=== PATIENT | female | born 1935 | race Caucasian/White ===

== ENCOUNTER 2016-09-15 13:27 | Emergency (ER) | payer MEDICARE ==
[2016-09-15 14:12] LABS: Hematocrit 43 % (35-47); Hemoglobin 14.2 g/dl (12.0-16.0); Mean Corpuscular HGB Conc 33 g/dl (31-36); Mean Corpuscular Hemoglobin 29 pg (27-31); Mean Corpuscular Volume 88 fL (80-97); Mean Platelet Volume 8 um3 (7.4-10.4); Red Blood Count 4.94 10^6/ul (4.0-5.4); Red Cell Distribution Width 13 % (10.5-15); White Blood Count 8.8 10^3/ul (3.5-10.8)
[2016-09-15] MEDS ORDERED: Albuterol/Ipratropium NEB.SOL* Albuterol 2.5 MG/Ipratropium 0.5 MG 3 ML INH ONE (14:21)
[2016-09-15 14:27] LABS: Albumin 4.4 g/dL (3.2-5.2); BUN/Creatinine Ratio 18.8 (8-20); Calcium 9.8 mg/dL (8.6-10.3); EGFR African American 82.6 (>60); EGFR Non-African American 64.2 (>60); Globulin 3.8 g/dL (2-4); Total Bilirubin 0.8 mg/dL (0.2-1.0); Total Protein 8.2 g/dL (6.4-8.9)
[2016-09-15 14:54] LABS: Potassium 3.9 mmol/L (3.5-5.0)
--- NOTE | 2016-09-15 14:56 | RAD ---
INDICATION: Shortness of breath and tachycardia. COMPARISON: There are no prior studies available for comparison. TECHNIQUE: A portable view of the chest was obtained. FINDINGS: The heart appears mildly enlarged. The lungs are hyperinflated. There is slight increased density adjacent to and EKG leads which project over the right upper lobe likely related to the EKG lead although a pulmonary nodule cannot be excluded. Recommend a PA and lateral chest films when the patient is clinically able. No pleural effusion is seen. IMPRESSION: 1. NO EVIDENCE FOR ACUTE FINDING. 2. INCREASED DENSITY ADJACENT TO AN EKG LEAD WHICH PROJECTS OVER THE RIGHT UPPER LOBE LIKELY RELATED TO THE EKG LEAD ALTHOUGH A PULMONARY NODULE CANNOT BE EXCLUDED. RECOMMEND PA AND LATERAL CHEST FILMS WITHOUT THE EKG LEAD PRESENT FOR FURTHER EVALUATION.
[2016-09-15] MEDS ORDERED: Iohexol 350* (CONTRAST) 500 ML MDV IV ONE (16:05)
--- NOTE | 2016-09-15 17:04 | RAD ---
Indication: Tachycardia, shortness of breath and elevated d-dimer. CTA of the chest was performed after IV contrast administration. Coronal and sagittal reconstructed images were obtained. Administered 65.0 ml of Contrast -- mgi/ml was given according to hospital protocol. Pulmonary arterial tree is well opacified. There are no evidence of filling defects present to suggest pulmonary embolus. Motion artifact is noted. There is no mediastinal or hilar adenopathy noted. There is cardiomegaly noted. No pericardial effusion is noted. The trachea and major bronchi appear patent. Lung gaytan demonstrate no evidence of alveolar consolidation. Some atelectasis is noted in the right middle lobe. No pleural fluid is identified. The visualized abdominal organs are grossly unremarkable. Gallstones are noted in the dependent portion of the gallbladder. 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 This measures up to 2.5 cm. This appears to be unchanged from previous exam of January 13, 2015. IMPRESSION: No evidence of pulmonary embolus is noted. Cardiomegaly without evidence of pericardial effusion. Gallstones are present. 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
[2016-09-15] MEDS ORDERED: predniSONE TAB* 20 MG PO ONE (17:20)
[2016-09-15] MEDS ORDERED: hydrOXYzine HCL TAB* 25 MG PO ONE (18:16)
[2016-09-15 18:39] VITALS: BP 133/74
--- NOTE | 2016-09-15 22:31 | ED ---
Reji Olmos Adam, scribed for Maurisio Cornell MD on 09/15/16 at 1404 . Respiratory - HPI Summary HPI Summary: Pt is an 81 year old female presenting with SOB. She has been having trouble breathing for 3-4 days. She saw a doctor at [facility] 3 days ago and was told that she was having post-nasal drip. Today she went to [facility] again because the SOB has grown worse. Pt states that she has had SOB before but never this severe. Lying flat and exertion aggravates the SOB. She also c/o cough for 5-10 days. She denies any fever, pain, or blood. PMHx of thyroid disease, HTN, and PNA several years ago. Negative Hx of heart/lung disease. Negative tobacco use. - History of Current Complaint Chief Complaint: EDShortnessOfBreath Stated Complaint: PALPATIONS Time Seen by Provider: 09/15/16 13:52 Hx Obtained From: Patient Onset/Duration: Gradual Onset, Lasting Days, Still Present Timing: Constant Initial Severity: Mild Current Severity: Moderate Character: Wheezing, Dyspnea at Rest Aggravating Factor(s): Nothing Alleviating Factor(s): Nothing Associated Signs and Symptoms: SOB, Wheezing - Allergy/Home Medications Allergies/Adverse Reactions: Allergies Allergy/AdvReac Type Severity Reaction Status Date / Time Amoxicillin Allergy Severe Rash Verified 01/09/16 07:09 Home Medications: Home Medications amLODIPine TAB* [Norvasc TAB*] 10 mg PO DAILY 09/15/16 [History Confirmed ] PMH/Surg Hx/FS Hx/Imm Hx Endocrine/Hematology History: Reports: Hx Thyroid Disease - On meds Cardiovascular History: Reports: Hx Hypertension - On meds Respiratory History: Reports: Hx Asthma - On meds - Surgical History Surgery Procedure, Year, and Place: PARTIAL THYROIDECTOMY; inguinal hernia Infectious Disease History: No Infectious Disease History: Denies: History Other Infectious Disease, Traveled Outside the [place] in Last 30 Days - Family History Known Family History: Positive: None - Per pt - Social History Occupation: Retired Lives: With Family - Son Alcohol Use: None Hx Substance Use: No Substance Use Type: Reports: None Hx Tobacco Use: No Smoking Status (MU): Never Smoked Tobacco Review of Systems Constitutional: Negative Negative: Fever Negative: Chest Pain Positive: Shortness Of Breath, Cough Negative: Abdominal Pain Negative: Arthralgia, Myalgia All Other Systems Reviewed And Are Negative: Yes Physical Exam - Summary Physical Exam Summary: General: Comfortable, pleasant, alert. HEENT: Moist mucosa, DAVID. Neck: Soft, supple, no adenopathy, no JVD. Heart: No murmurs, rubs, or gallops. Lungs: Good air movement throughout. Scattered wheezing. No rales. Abdominal: Soft, flat, nontender Extremities: No pitting edema, no calf tenderness, calves soft. Neuro: Alert and oriented x 3 Psych: Logical, coherent Triage Information Reviewed: Yes Vital Signs On Initial Exam: Initial Vitals Temp Pulse Resp BP Pulse Ox 98.7 F 124 20 148/81 94 09/15/16 13:39 09/15/16 13:39 09/15/16 13:39 09/15/16 13:39 09/15/16 13:39 Vital Signs Reviewed: Yes Diagnostics - Vital Signs Vital Signs Temp Pulse Resp BP Pulse Ox 09/15/16 13:39 98.7 F 124 20 148/81 94 - Laboratory Lab Results: Lab Results 09/15/16 09/15/16 09/15/16 Range/Units 14:00 14:00 14:00 WBC 8.8 (3.5-10.8) 10^3/ul RBC 4.94 (4.0-5.4) 10^6/ul Hgb 14.2 (12.0-16.0) g/dl Hct 43 (35-47) % MCV 88 (80-97) fL MCH 29 (27-31) pg MCHC 33 (31-36) g/dl RDW 13 (10.5-15) % Plt Count 379 (150-450) 10^3/ul MPV 8 (7.4-10.4) um3 Neut % (Auto) 75.7 (38-83) % Lymph % (Auto) 15.3 L (25-47) % Harnett % (Auto) 5.5 (1-9) % Eos % (Auto) 2.6 (0-6) % Baso % (Auto) 0.9 (0-2) % Absolute Neuts (auto) 6.7 (1.5-7.7) 10^3/ul Absolute Lymphs (auto) 1.3 (1.0-4.8) 10^3/ul Absolute Monos (auto) 0.5 (0-0.8) 10^3/ul Absolute Eos (auto) 0.2 (0-0.6) 10^3/ul Absolute Basos (auto) 0.1 (0-0.2) 10^3/ul Absolute Nucleated RBC 0.01 10^3/ul Nucleated RBC % 0.1 D-Dimer, Quantitative (Less Than 230) ng/mL Sodium 135 (133-145) mmol/L Potassium 3.9 (3.5-5.0) mmol/L Chloride 101 (101-111) mmol/L Carbon Dioxide 23 (22-32) mmol/L Anion Gap 11 (2-11) mmol/L BUN 16 (6-24) mg/dL Creatinine 0.85 (0.51-0.95) mg/dL Est GFR ( Amer) 82.6 (>60) Est GFR (Non-Af Amer) 64.2 (>60) BUN/Creatinine Ratio 18.8 (8-20) Glucose 148 H (70-100) mg/dL Lactic Acid 1.8 (0.5-2.0) mmol/L Calcium 9.8 (8.6-10.3) mg/dL Total Bilirubin 0.80 (0.2-1.0) mg/dL AST 18 (13-39) U/L ALT 10 (7-52) U/L Alkaline Phosphatase 76 (34-104) U/L Troponin I 0.00 (<0.04) ng/mL B-Natriuretic Peptide ( - 100) pg/mL Total Protein 8.2 (6.4-8.9) g/dL Albumin 4.4 (3.2-5.2) g/dL Globulin 3.8 (2-4) g/dL Albumin/Globulin Ratio 1.2 (1-3) TSH (0.34-5.60) mcIU/mL 09/15/16 09/15/16 09/15/16 Range/Units 14:00 14:00 14:00 WBC (3.5-10.8) 10^3/ul RBC (4.0-5.4) 10^6/ul Hgb (12.0-16.0) g/dl Hct (35-47) % MCV (80-97) fL MCH (27-31) pg MCHC (31-36) g/dl RDW (10.5-15) % Plt Count (150-450) 10^3/ul MPV (7.4-10.4) um3 Neut % (Auto) (38-83) % Lymph % (Auto) (25-47) % Harnett % (Auto) (1-9) % Eos % (Auto) (0-6) % Baso % (Auto) (0-2) % Absolute Neuts (auto) (1.5-7.7) 10^3/ul Absolute Lymphs (auto) (1.0-4.8) 10^3/ul Absolute Monos (auto) (0-0.8) 10^3/ul Absolute Eos (auto) (0-0.6) 10^3/ul Absolute Basos (auto) (0-0.2) 10^3/ul Absolute Nucleated RBC 10^3/ul Nucleated RBC % D-Dimer, Quantitative 370 H (Less Than 230) ng/mL Sodium (133-145) mmol/L Potassium (3.5-5.0) mmol/L Chloride (101-111) mmol/L Carbon Dioxide (22-32) mmol/L Anion Gap (2-11) mmol/L BUN (6-24) mg/dL Creatinine (0.51-0.95) mg/dL Est GFR ( Amer) (>60) Est GFR (Non-Af Amer) (>60) BUN/Creatinine Ratio (8-20) Glucose (70-100) mg/dL Lactic Acid (0.5-2.0) mmol/L Calcium (8.6-10.3) mg/dL Total Bilirubin (0.2-1.0) mg/dL AST (13-39) U/L ALT (7-52) U/L Alkaline Phosphatase (34-104) U/L Troponin I (<0.04) ng/mL B-Natriuretic Peptide 53 ( - 100) pg/mL Total Protein (6.4-8.9) g/dL Albumin (3.2-5.2) g/dL Globulin (2-4) g/dL Albumin/Globulin Ratio (1-3) TSH 1.18 (0.34-5.60) mcIU/mL Result Diagrams: 09/15/16 14:00 09/15/16 14:00 Lab Statement: Any lab studies that have been ordered have been reviewed, and results considered in the medical decision making process. - Radiology CXR Radiology Interpretation Completed By: Radiologist - IMPRESSION: 1. NO EVIDENCE FOR ACUTE FINDING. 2. INCREASED DENSITY ADJACENT TO AN EKG LEAD WHICH PROJECTS OVER THE RIGHT UPPER LOBE LIKELY RELATED TO THE EKG LEAD ALTHOUGH A PULMONARY NODULE CANNOT BE EXCLUDED. RECOMMEND PA AND LATERAL CHEST FILMS WITHOUT THE EKG LEAD PRESENT FOR FURTHER EVALUATION. - CT CHEST/THORAX CTA CT Interpretation Completed By: Radiologist - IMPRESSION: No evidence of pulmonary embolus is noted. Cardiomegaly without evidence of pericardial effusion. Gallstones are present. 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 - EKG 14:11 Cardiac Rate: Tachycardia - 108 BPM EKG Rhythm: Sinus Tachycardia EKG Interpretation: Inferior lateral ST flattening. 2 PVC's. - Additional Comments Diagnostic Additional Comments: Troponin I - 0.00 D-Dimer, Quantitative - 370 Disposition - Course Assessment/Plan: She presents with SOB but this has been going on episodically for years. This episode she states is worse than usual. She does not have any other cardiac ischemic equivalents such as any discomfort anywhere. She has had a cough with this. When I examine her there is some obvious wheezing. We will give her azithromycin, steroids, and breathing treatments. There is no evidence of cardiac etiology or PE. I believe she should follow up with her PCP and have an out-patient stress test given that these episodes have been going on for such a long time. She agrees to return for any worsening of her symptoms or any new cardiac ischemic equivalents and these were described to her in detail. Currently her HR is 100 BPM. - Diagnoses Provider Diagnoses: Cough, SOB (shortness of breath) Discharge - Discharge Plan Condition: Good Disposition: HOME Prescriptions: Albuterol HFA INHALER* [Ventolin HFA Inhaler*] 1 puff INH Q4H PRN #1 mdi PRN Reason: Wheezing Azithromyxin HOOD (NF) [Z-Hood (Zithromax) 250 mg tabs #6] 2 tab PO .TODAY, THEN 1 DAILY #6 tab Spacer/Aerosol-Holding Chamber [Aerochamber Plus] 1 mis INH Q4HR PRN #1 mis PRN Reason: Wheezing predniSONE TAB* [Deltasone TAB*] 20 mg PO DAILY #12 tab Patient Education Materials: Wheezing (ED) Referrals: Bailee Ayers MD [Primary Care Provider] - 1 Day The documentation as recorded by the Reji clements Adam accurately reflects the service I personally performed and the decisions made by me, Maurisio Cornell MD.
== END 2016-09-15 18:37 | disposition home or self-care (01) ==
LOC: ED 13:27
DX: R06.02 Shortness of breath (principal); R00.0 Tachycardia, unspecified; R05 Cough; R06.2 Wheezing
CPT/HCPCS: 36415; 71010; 71275; 80053; 83605; 83880; 84443; 84484; 85025; 85379; 87040; 93005; 94640; 99283; A9270-GY; J7512; Q9967

== ENCOUNTER 2018-02-17 11:33 | Emergency (ER) | payer MEDICARE ==
[2018-02-17] MEDS ORDERED: Ibuprofen TAB* 600 MG PO ONE (11:52)
[2018-02-17] MEDS ORDERED: Acetaminophen TAB* 325 MG PO ONE (11:52)
--- NOTE | 2018-02-17 13:05 | RAD ---
INDICATION: Chronic back pain COMPARISON: CT abdomen pelvis January 13, 2015 TECHNIQUE: Noncontrast axial source images was performed from the thoracolumbar junction to the sacrum. Coronal and and sagittal reformatted images were generated. FINDINGS: Vertebrae: There is no fracture or acute focal bony lesion. There is progressive endplate deformity involving the superior endplate of L2. There is chronic L4 spondylolysis with a grade 1 anterolisthesis. This produces moderate central canal stenosis. There is multilevel facet arthropathy. There is multilevel degenerative bony spur formation. There is degenerative disc space narrowing with vacuum disc phenomena at L3-L4 and L4-L5 Alignment: As noted above grade 1 anterolisthesis of L4 on L5. Central Canal: There are no other significant CT abnormalities of the central canal or foramina. MR imaging is a more sensitive method to evaluate the canal and foramina. Intervertebral disc spaces: Multilevel degenerative narrowing as noted above. Soft tissues: The paravertebral soft tissues are normal. Other: None IMPRESSION: 1. Superior endplate compression deformity of L2 appears mildly progressive from 2014. 2. Multilevel degenerative disc disease with vacuum disc phenomena. Other degenerative changes include bony spur formation facet arthropathy. 3. Degenerative disc disease with vacuum disc phenomena at L3-L4 and L4-L5 4. Chronic L4 spondylolysis with grade 1 anterolisthesis. Moderate central canal stenosis at L4-L5.
--- NOTE | 2018-02-17 13:06 | RAD ---
INDICATION: Right flank pain. Low back pain COMPARISON: CT abdomen pelvis January 13, 2015 TECHNIQUE: Noncontrast axial source images were acquired from the level hemidiaphragms to the symphysis pubis as part of CT imaging for renal stone. Lung bases: The lung bases are clear. The heart is enlarged. Liver: The liver is normal in size. Noncontrast imaging shows no evidence of a hepatic mass or ductal dilatation. Gallbladder: There is cholelithiasis. Spleen: The spleen is normal in size. The noncontrast CT appearance is normal. Pancreas: Noncontrast imaging shows no pancreatic mass or ductal dilitation. Adrenal glands: No masses are identified. Kidneys/Bladder: There is no evidence of nephrolithiasis or CT evidence of hydronephrosis. Noncontrast imaging shows no evidence of a new renal mass. There is a fat-containing lesion in the lower pole of the left kidney measuring 2.9 cm which is unchanged and consistent with angiomyolipoma. The bladder is partially decompressed. There is a vesicocele. Adenopathy: There is no evidence of intraperitoneal or retroperitoneal adenopathy. Evaluation is limited without oral contrast. Fluid collections: There are no free or localized fluid collections. Vessels: The aorta and iliac vessels are normal in caliber. There are no significant atherosclerotic changes. The IVC appears normal Pelvic organs: There is uterine prolapse. There is no adnexal mass. GI tract: Evaluation of the GI tract is limited without contrast. There is a small hiatal hernia. There are scattered diverticula of the sigmoid and descending colon without CT findings of acute diverticulitis. Soft tissues: No soft tissue abnormalities of the extraperitoneal abdomen or pelvis are identified. Osseous structures: Spondylitic change of the lumbar spine. This is described in a separate report. IMPRESSION: 1. No CT evidence of urolithiasis. 2. Cholelithiasis, unchanged 3. Left-sided renal angiomyolipoma, unchanged. 4. Scattered diverticula, unchanged. Hiatal hernia. 5. Cystocele. Uterine prolapse.
[2018-02-17 14:16] VITALS: BP 135/89
--- NOTE | 2018-02-17 15:48 | ED ---
Alexei Olmos Jade, scribed for Mynor Ahumada MD on 02/17/18 at 1143 . Lower Extremity - HPI Summary HPI Summary: Pt is an 82 y/o female BIBA who c/o hip pain. She states the pain started 4 days ago in her left hip, which resolved. The pain then moved to her right hip and keeps worsening, is constant, and is rated 8/10 in severity. It is hard to walk or put pressure on her hip. She also complains of low back pain near her sacrum (self-reported L4-L5) from an injury several years ago. Pt denies any fever, chills, SOB, numbness, ankle pain, knee pain, any other joint pain, or swelling of her low back. Pt has been taking Ibuprofen for the pain, which helps a little. She denies any recent trauma, fall, or new activities. PMHx arthritis. As per daughter, pt is in the early stages of dementia, so her short term memory is getting worse. - History of Current Complaint Chief Complaint: EDHipPelvisInjury Stated Complaint: RT LEG PAIN Time Seen by Provider: 02/17/18 11:40 Hx Obtained From: Patient Mechanism Of Injury: Unknown Onset of Pain: Days - 4 Onset/Duration: Worse Since Severity Currently: Severe Pain Intensity: 8 Pain Scale Used: 0-10 Numeric Timing: Constant Location: Is Discrete @ - Right hip, low back Associated Signs And Symptoms: Negative: Swelling, Knee Pain Aggravating Factor(s): Movement, Weight Bearing Alleviating Factor(s): Nothing Able to Bear Weight: No - Allergies/Home Medications Allergies/Adverse Reactions: Allergies Allergy/AdvReac Type Severity Reaction Status Date / Time amoxicillin Allergy Rash Verified 02/17/18 11:41 Home Medications: Home Medications Albuterol HFA INHALER* [Ventolin HFA Inhaler*] 1 - 2 puff INH BID 02/17/18 [ History Confirmed 02/17/18] Ibuprofen TAB* [Motrin TAB* 400 MG] 400 mg PO Q6H PRN 02/17/18 [History Confirmed 02/17/18] PMH/Surg Hx/FS Hx/Imm Hx Endocrine/Hematology History: Reports: Hx Thyroid Disease - On meds Cardiovascular History: Reports: Hx Hypertension - On meds Respiratory History: Reports: Hx Asthma - On meds Musculoskeletal History: Reports: Hx Arthritis - Surgical History Surgery Procedure, Year, and Place: PARTIAL THYROIDECTOMY; inguinal hernia Infectious Disease History: No Infectious Disease History: Denies: History Other Infectious Disease, Traveled Outside the [place] in Last 30 Days - Family History Known Family History: Positive: Cardiac Disease - CHF, Other - [place] - Social History Alcohol Use: None Hx Substance Use: No Substance Use Type: Reports: None Hx Tobacco Use: No Smoking Status (MU): Never Smoked Tobacco Review of Systems Negative: Fever, Chills Negative: Shortness Of Breath Musculoskeletal: Other - NEGATIVE: ankle pain, knee pain Positive: Arthralgia - Right hip pain, Other - Low back pain. Negative: Edema Negative: Numbness All Other Systems Reviewed And Are Negative: Yes Physical Exam - Summary Physical Exam Summary: General: well-appearing, no pain distress Skin: warm, color reflects adequate perfusion, dry Head: normal Eyes: EOMI, DAVID ENT: normal Neck: supple, nontender Respiratory: CTA, breath sounds present Cardiovascular: RRR Abdomen: soft, nontender Bowel: present Musculoskeletal: strength/ROM intact, tenderness of the sciatic distribution of the right buttock. Mild low back tenderness over L5-S1. Neurological: sensory/motor intact, A&O x3 Psychological: affect/mood appropriate Triage Information Reviewed: Yes Vital Signs On Initial Exam: Initial Vitals Temp Pulse Resp BP Pulse Ox 99.4 F 94 16 133/79 97 02/17/18 11:39 02/17/18 11:39 02/17/18 11:39 02/17/18 11:39 02/17/18 11:39 Vital Signs Reviewed: Yes Diagnostics - Vital Signs Vital Signs Temp Pulse Resp BP Pulse Ox 02/17/18 11:39 99.4 F 94 16 133/79 97 - Laboratory Lab Statement: Any lab studies that have been ordered have been reviewed, and results considered in the medical decision making process. - CT Abd/Pel CT CT Interpretation Completed By: Radiologist - 11:53: 1. No CT evidence of urolithiasis. 2. Cholelithiasis, unchanged 3. Left-sided renal angiomyolipoma , unchanged. 4. Scattered diverticula, unchanged. Hiatal hernia. 5. Cystocele. Uterine prolapse. ED physician reviewed radiology report. Lumbar Spine CT CT Interpretation Completed By: Radiologist - 11:53: 1. Superior endplate compression deformity of L2 appears mildly progressive from 2015. 2. Multilevel degenerative disc disease with vacuum disc phenomena. Other degenerative changes include bony spur formation facet arthropathy. 3. Degenerative disc disease with vacuum disc phenomena at L3-L4 and L4-L5 4. Chronic L4 spondylolysis with grade 1 anterolisthesis. Moderate central canal stenosis at L4-L5. ED physician reviewed radiology report. Lower Extremity Course/Dx - Course Course Of Treatment: DISCUSSED RESULTS WITH THE PATIENT AND HER DAUGHTER. PAIN DECREASED IN ED WITH IBUPROFEN 600MG AND ACETAMINOPHEN 1000MG. F/U PMD; RETURN TO ED IF WORSE. - Diagnoses Provider Diagnoses: Low back pain, Right hip pain, Right sciatic nerve pain Discharge - Sign-Out/Discharge Documenting (check all that apply): Discharge/Admit/Transfer - Discharge - Discharge Plan Condition: Stable Disposition: HOME Prescriptions: Ibuprofen TAB* [Motrin TAB* 600 MG] 600 mg PO Q8H PRN #30 tab PRN Reason: Pain Patient Education Materials: Low Back Strain (ED), Lumbar Radiculopathy (ED), Lower Back Exercises (ED) Referrals: Bailee Ayers MD [Primary Care Provider] - Additional Instructions: FOLLOW UP WITH YOUR DOCTOR. TAKE IBUPROFEN 600MG THREE TIMES A DAY WITH FOOD. TAKE ACETAMINOPHEN 1000MG EVERY 8 HOURS NEEDED FOR PAIN. GET RECHECKED FOR ANY WORSENING OF YOUR CONDITION; PAIN, WEAKNESS, NUMBNESS, DIFFICULTY CONTROLLING BOWEL OR BLADDER, FEVER, OR QUESTIONS OR CONCERNS. - Billing Disposition and Condition Condition: STABLE Disposition: Home The documentation as recorded by the Alexei clements Jade accurately reflects the service I personally performed and the decisions made by me, Mynor Ahumada MD.
== END 2018-02-17 14:15 | disposition home or self-care (01) ==
LOC: ED 11:33
DX: M54.41 Lumbago with sciatica, right side (principal); M25.551 Pain in right hip; Z88.1 Allergy status to other antibiotic agents; I10 Essential (primary) hypertension; J45.909 Unspecified asthma, uncomplicated; E07.9 Disorder of thyroid, unspecified; Z79.899 Other long term (current) drug therapy; K80.20 Calculus of gallbladder without cholecystitis without obstruction; D17.71 Benign lipomatous neoplasm of kidney; K57.90 Diverticulosis of intestine, part unspecified, without perforation or abscess without bleeding; N81.4 Uterovaginal prolapse, unspecified
CPT/HCPCS: 72131; 74176; 99282; A9270-GY

== ENCOUNTER 2018-02-21 07:35 | Inpatient (IN) | payer MEDICARE ==
[2018-02-21] MEDS ORDERED: NS 0.9% 1000 ML* 1,000 ML IV ONE (07:58)
[2018-02-21] MEDS ORDERED: Ondansetron INJ* 2 MG/ML VIAL IV ONE (07:58)
[2018-02-21 08:31] LABS: ABS Basophils 0.1 10^3/ul (0-0.2); ABS Eosinophils 0.3 10^3/ul (0-0.6); ABS Monocytes 0.8 10^3/ul (0-0.8); ABS Neutrophils 6.1 10^3/ul (1.5-7.7); ABS Nucleated RBC 0 10^3/ul; Eosinophil % 3.9 % (0-6); Hematocrit 38 % (35-47); Lymphocyte % 12.1 % (25-47); Mean Corpuscular HGB Conc 34 g/dl (31-36); Mean Corpuscular Hemoglobin 30 pg (27-31); Mean Corpuscular Volume 88 fL (80-97); Mean Platelet Volume 7.3 um3 (7.4-10.4); Nucleated Red Blood Cells % 0; Platelet Count 427 10^3/ul (150-450); Red Blood Count 4.33 10^6/ul (4.00-5.40); Red Cell Distribution Width 13 % (10.5-15); White Blood Count 8.3 10^3/ul (3.5-10.8)
[2018-02-21] MEDS ORDERED: Morphine VIAL* 4 MG/ML VIAL (1 ml vial) IV ONE (08:41)
[2018-02-21 08:46] LABS: EGFR Non-African American 33.8 (>60)
[2018-02-21] MEDS ORDERED: Ondansetron ODT TAB* 4 MG PO ONE (08:48)
--- NOTE | 2018-02-21 09:00 | RAD ---
Indication: Nausea, vomiting, low back pain. Comparison: September 15, 2016 CT. Technique: Sitting AP chest 0835 hours Report: Elevated lung volumes and both diffuse mild prominence of the interstitial markings and patchy rarefaction of the mid to upper lung zone interstitial markings. Minimal linear atelectasis or scarring at the LEFT lung base. No focal pulmonary lesion, compelling alveolar consolidation, pleural effusion, pneumothorax. Unchanged mild cardiomegaly. Unremarkable central pulmonary vasculature and mediastinal contours. IMPRESSION: Stigmata of obstructive lung disease. No acute pulmonary or cardiac process evident.
--- NOTE | 2018-02-21 09:03 | RAD ---
Indication: Nausea, vomiting, low back pain. Comparison: Chest radiograph of the same date. February 17, 2018 CT. September 15, 2016 CT. Technique: Supine view of the abdomen. Report: Moderately large volume of retained stool throughout the colon without significant rectal distention. No dilated bowel loops evident. No suspicious calcifications or mass effect evident. Costochondral calcifications and pelvic phleboliths noted. Unremarkable soft tissue contours. Lumbar sacral spine degenerative spondylosis and facet joint osteoarthritis. Compression deformity of the L2 vertebral body involving the superior endplate is chronic. IMPRESSION: Moderately large volume of retained stool throughout the colon without findings to indicate bowel obstruction.
--- NOTE | 2018-02-21 09:27 | RAD ---
HISTORY: Back pain COMPARISONS: CT of the abdomen and pelvis dated February 17, 2018 TECHNIQUE: Multiple transverse and longitudinal ultrasound images were obtained of the right upper quadrant. FINDINGS: LIVER: The liver is normal in dimensions and echogenicity. Normal hepatic and portal venous blood flow is duplicated with color flow imaging. There is no gross intrahepatic biliary duct dilatation. GALLBLADDER AND EXTRAHEPATIC BILIARY DUCT: There is mobile echogenic material in the dependent portion of the gallbladder consistent with small stones. There is no pericholecystic fluid or gallbladder wall thickening. The common bile duct measures a maximum diameter of 4 mm. PANCREAS: The portions of the pancreas not obscured by bowel gas are normal in appearance. RIGHT KIDNEY: At the superior pole of the right kidney there is a 2.1 cm anechoic and avascular cyst. Otherwise the right kidney is normal in size, morphology and echogenicity. AORTA AND IVC: The visualized portions are normal in appearance and not pathologically dilated. IMPRESSION: CHOLELITHIASIS WITHOUT SIGNS OF ACUTE INFLAMMATORY CHANGE OR BILIARY OBSTRUCTION.
[2018-02-21 09:54] LABS: Urine Appearance Clear; Urine Blood 2+ (Negative); Urine Color Straw; Urine Ketones 1+ (Negative); Urine Protein Negative (Negative); Urine Specific Gravity 1.008 (1.010-1.030); Urine Urobilinogen Negative (Negative)
[2018-02-21] MEDS ORDERED: Morphine VIAL* 4 MG/ML VIAL (1 ml vial) IV PRN (11:40)
[2018-02-21] MEDS ORDERED: Al Hydrox/Mg Hydrox/Simet LIQ* 30 ML UDC PO PRN (11:40)
[2018-02-21] MEDS ORDERED: Magnesium Hydroxide LIQ* 30 ML UDC PO PRN (11:40)
[2018-02-21] MEDS ORDERED: Albuterol 2.5 MG/3 ML NEB.SOL* (0.083%) INH PRN (11:40)
[2018-02-21] MEDS ORDERED: Acetaminophen TAB* 325 MG PO PRN (11:40)
--- NOTE | 2018-02-21 11:41 | ED ---
Manny Olmos Tiffany, scribbambi for Benedict Mckay on 02/21/18 at 0806 . Complex/Multi-Sys Presentation - HPI Summary HPI Summary: 82 year old F BIBA to [facility] complains of nausea since yesterday morning. Symptoms aggravated by nothing. Symptoms alleviated by nothing. Patient reports decreased appetite, insomnia, black/dark brown vomit. Denies diarrhea, black stools, fever, chest pain, SOB. Seen here four days ago for lower back pain, discharged with Tramadol. Patient still complaining of lower back pain. - History Of Current Complaint Time Seen by Provider: 02/21/18 07:46 Onset/Duration: Lasting Days - yesterday morning, Still Present Timing: Constant Aggravating Factor(s): Nothing Alleviating Factor(s): Nothing Associated Signs And Symptoms: Positive: Other - decreased appetite, insomnia, black/dark brown vomit, lower back pain; NEGATIVE: diarrhea, black stools, fever , chest pain, SOB - Allergies/Home Medications Allergies/Adverse Reactions: Allergies Allergy/AdvReac Type Severity Reaction Status Date / Time amoxicillin Allergy Rash Verified 02/21/18 07:48 PMH/Surg Hx/FS Hx/Imm Hx Previously Healthy: No Endocrine/Hematology History: Reports: Hx Thyroid Disease - On meds Cardiovascular History: Reports: Hx Hypertension - On meds Respiratory History: Reports: Hx Asthma - On meds Musculoskeletal History: Reports: Hx Arthritis - Surgical History Surgery Procedure, Year, and Place: PARTIAL THYROIDECTOMY; inguinal hernia Infectious Disease History: Denies: History Other Infectious Disease - Family History Known Family History: Positive: Cardiac Disease - CHF, Other - CA - Social History Alcohol Use: None Hx Substance Use: No Substance Use Type: Reports: None Hx Tobacco Use: No Smoking Status (MU): Never Smoked Tobacco Review of Systems Negative: Fever Negative: Chest Pain Negative: Shortness Of Breath Positive: Vomiting - black/dark brown vomit, Nausea, Other - decreased appetite ; NEGATIVE: black stools. Negative: Diarrhea Positive: Other - lower back pain Positive: Other - insomnia All Other Systems Reviewed And Are Negative: Yes Physical Exam - Summary Physical Exam Summary: Appearance: Well appearing, no pain distress Skin: warm, dry, reflects adequate perfusion Head/face: normal Eyes: EOMI, DAVID ENT: dry mucous membranes Neck: supple, non-tender Respiratory: CTA, breath sounds present Cardiovascular: RRR, pulses symmetrical Abdomen: non-tender, soft Bowel: present Musculoskeletal: normal, strength/ROM intact Neuro: normal, sensory motor intact, A&Ox3 Triage Information Reviewed: Yes Vital Signs On Initial Exam: Initial Vitals Pulse BP Pulse Ox 95 141/79 94 02/21/18 07:46 02/21/18 07:46 02/21/18 07:46 Vital Signs Reviewed: Yes Diagnostics - Vital Signs Vital Signs Temp Pulse Resp BP Pulse Ox 02/21/18 10:16 81 114/69 88 02/21/18 10:00 83 92 02/21/18 09:46 89 124/68 89 02/21/18 09:16 90 127/80 95 02/21/18 09:07 17 02/21/18 09:00 90 97 02/21/18 08:46 89 118/92 96 02/21/18 08:18 134/82 02/21/18 08:00 87 94 02/21/18 07:49 99.1 F 93 16 141/79 95 02/21/18 07:47 99 97 02/21/18 07:46 95 141/79 94 - Laboratory Lab Results: Lab Results 02/21/18 02/21/18 02/21/18 Range/Units 08:13 08:13 08:13 WBC 8.3 (3.5-10.8) 10^3/ul RBC 4.33 (4.00-5.40) 10^6/ul Hgb 13.0 (12.0-16.0) g/dl Hct 38 (35-47) % MCV 88 (80-97) fL MCH 30 (27-31) pg MCHC 34 (31-36) g/dl RDW 13 (10.5-15) % Plt Count 427 (150-450) 10^3/ul MPV 7.3 L (7.4-10.4) um3 Neut % (Auto) 74.0 (38-83) % Lymph % (Auto) 12.1 L (25-47) % [place] % (Auto) 9.3 H (0-7) % Eos % (Auto) 3.9 (0-6) % Baso % (Auto) 0.7 (0-2) % Absolute Neuts (auto) 6.1 (1.5-7.7) 10^3/ul Absolute Lymphs (auto) 1.0 (1.0-4.8) 10^3/ul Absolute Monos (auto) 0.8 (0-0.8) 10^3/ul Absolute Eos (auto) 0.3 (0-0.6) 10^3/ul Absolute Basos (auto) 0.1 (0-0.2) 10^3/ul Absolute Nucleated RBC 0 10^3/ul Nucleated RBC % 0 INR (Anticoag Therapy) 1.00 (0.77-1.02) APTT 37.2 H (26.0-36.3) seconds Sodium 134 L (135-145) mmol/L Potassium 3.8 (3.5-5.0) mmol/L Chloride 100 L (101-111) mmol/L Carbon Dioxide 22 (22-32) mmol/L Anion Gap 12 H (2-11) mmol/L BUN 35 H (6-24) mg/dL Creatinine 1.48 H (0.51-0.95) mg/dL Est GFR ( Amer) 40.9 (>60) Est GFR (Non-Af Amer) 33.8 (>60) BUN/Creatinine Ratio 23.6 H (8-20) Glucose 105 H (70-100) mg/dL Calcium 9.6 (8.6-10.3) mg/dL Total Bilirubin 0.70 (0.2-1.0) mg/dL AST 16 (13-39) U/L ALT 10 (7-52) U/L Alkaline Phosphatase 131 H (34-104) U/L Total Protein 7.3 (6.4-8.9) g/dL Albumin 3.9 (3.2-5.2) g/dL Globulin 3.4 (2-4) g/dL Albumin/Globulin Ratio 1.1 (1-3) Lipase < 10 L (11.0-82.0) U/L Urine Color Urine Appearance Urine pH (5-9) Ur Specific [place] (1.010-1.030) Urine Protein (Negative) Urine Ketones (Negative) Urine Blood (Negative) Urine Nitrate (Negative) Urine Bilirubin (Negative) Urine Urobilinogen (Negative) Ur Leukocyte Esterase (Negative) Urine WBC (Auto) (Absent) Urine RBC (Auto) (Absent) Ur Squamous Epith Cells (Absent) Urine Bacteria (Absent) Urine Glucose (Negative) 02/21/18 Range/Units 09:30 WBC (3.5-10.8) 10^3/ul RBC (4.00-5.40) 10^6/ul Hgb (12.0-16.0) g/dl Hct (35-47) % MCV (80-97) fL MCH (27-31) pg MCHC (31-36) g/dl RDW (10.5-15) % Plt Count (150-450) 10^3/ul MPV (7.4-10.4) um3 Neut % (Auto) (38-83) % Lymph % (Auto) (25-47) % [place] % (Auto) (0-7) % Eos % (Auto) (0-6) % Baso % (Auto) (0-2) % Absolute Neuts (auto) (1.5-7.7) 10^3/ul Absolute Lymphs (auto) (1.0-4.8) 10^3/ul Absolute Monos (auto) (0-0.8) 10^3/ul Absolute Eos (auto) (0-0.6) 10^3/ul Absolute Basos (auto) (0-0.2) 10^3/ul Absolute Nucleated RBC 10^3/ul Nucleated RBC % INR (Anticoag Therapy) (0.77-1.02) APTT (26.0-36.3) seconds Sodium (135-145) mmol/L Potassium (3.5-5.0) mmol/L Chloride (101-111) mmol/L Carbon Dioxide (22-32) mmol/L Anion Gap (2-11) mmol/L BUN (6-24) mg/dL Creatinine (0.51-0.95) mg/dL Est GFR ( Amer) (>60) Est GFR (Non-Af Amer) (>60) BUN/Creatinine Ratio (8-20) Glucose (70-100) mg/dL Calcium (8.6-10.3) mg/dL Total Bilirubin (0.2-1.0) mg/dL AST (13-39) U/L ALT (7-52) U/L Alkaline Phosphatase (34-104) U/L Total Protein (6.4-8.9) g/dL Albumin (3.2-5.2) g/dL Globulin (2-4) g/dL Albumin/Globulin Ratio (1-3) Lipase (11.0-82.0) U/L Urine Color Straw Urine Appearance Clear Urine pH 5.0 (5-9) Ur Specific [place] 1.008 L (1.010-1.030) Urine Protein Negative (Negative) Urine Ketones 1+ A (Negative) Urine Blood 2+ A (Negative) Urine Nitrate Negative (Negative) Urine Bilirubin Negative (Negative) Urine Urobilinogen Negative (Negative) Ur Leukocyte Esterase Trace A (Negative) Urine WBC (Auto) 1+(6-10/hpf) A (Absent) Urine RBC (Auto) Trace(0-2/hpf) (Absent) Ur Squamous Epith Cells Present A (Absent) Urine Bacteria Absent (Absent) Urine Glucose Negative (Negative) Result Diagrams: 02/21/18 08:13 02/21/18 08:13 Lab Statement: Any lab studies that have been ordered have been reviewed, and results considered in the medical decision making process. - Radiology CXR Radiology Interpretation Completed By: Radiologist - Stigmata of obstructive lung disease. No acute pulmonary or cardiac process evident. ED physician has reviewed this report. Abdomen Radiology Interpretation Completed By: Radiologist - Moderately large volume of retained stool throughout the colon without findings to indicate bowel obstruction. ED physician has reviewed this report. - EKG 08:03 Cardiac Rate: NL - 97 BPM EKG Rhythm: Sinus Rhythm EKG Interpretation: No acute changes - Additional Comments Diagnostic Additional Comments: Gallbladder US, per radiologist, shows CHOLELITHIASIS WITHOUT SIGNS OF ACUTE INFLAMMATORY CHANGE OR BILIARY OBSTRUCTION. ED physician has reviewed this report. Complex Multi-Symp Course/Dx Course Of Treatment: 82 y/o F BIBA to [facility] complains of nausea that began yesterday AM. Bloodwork/UA obtained. Imaging obtained. Patient will be admitted to Dr. Yoon, hospitalist, for further evaluation. - Diagnoses Differential Diagnoses/HQI/PQRI: Urinary Tract Infection, Other - abd pain Provider Diagnoses: Abdominal pain, Back pain, Dehydration, Vomiting - Physician Notifications Discussed Care Of Patient With: Shane Yoon Time Discussed With Above Provider: 11:37 Instructed by Provider To: Other - Dr. Yoon, hospitalist, agrees to admit patient. Discharge - Sign-Out/Discharge Documenting (check all that apply): Discharge/Admit/Transfer - admit - Discharge Plan Condition: Fair Disposition: ADMITTED TO [facility] - Billing Disposition and Condition Condition: FAIR Disposition: Admitted to [facility] The documentation as recorded by the Manny clements Tiffany accurately reflects the service I personally performed and the decisions made by Woody lizama Emmanuel.
[2018-02-21] MEDS ORDERED: traMADol TAB* 50 MG PO PRN (11:43)
[2018-02-21] MEDS ORDERED: amLODIPine TAB* 5 MG PO SCH (11:45)
[2018-02-21] MEDS ORDERED: Valsartan TAB* 160 MG PO SCH (12:00)
[2018-02-21] MEDS ORDERED: Ondansetron ODT TAB* 4 MG SL PRN (12:04)
[2018-02-21] MEDS ORDERED: Polyethylene Glycol 3350* 17 GM PACKET PO PRN (12:05)
[2018-02-21] MEDS: Heparin VIAL(*) 5000 UNITS/ML VIAL (FIVE THOUSAND) SUBCUT SCH ×2 (13:28→21:36)
[2018-02-21] MEDS: Omeprazole CAP* 20 MG PO SCH ×2 (13:29→20:29)
[2018-02-21] MEDS: oxyCODONE/Acetamin 5/325 MG* TAB PO PRN ×3 (13:29→21:35)
[2018-02-21] MEDS: NS 0.9% 1000 ML* 1,000 ML IV SCH (13:45)
--- NOTE | 2018-02-21 14:42 | HP ---
CC: Dr. Bailee Ayers * ADMISSION HISTORY AND PHYSICAL: DATE OF ADMISSION: 02/21/18 PATIENT OF: Randall Yoon MD PRIMARY CARE PHYSICIAN: Dr. Ayers. ATTENDING HOSPITALIST: Dr. Randall Yoon.* (DICTATED BY BONNIE RAMON) CHIEF COMPLAINT: Nausea and vomiting. HISTORY OF PRESENT ILLNESS: Mrs. Whitaker is a pleasant 82-year-old female who carries a past medical history significant for COPD, hypertension, and hypothyroidism as well as chronic back pain with a longstanding history of L2 compression fracture, who presented to the emergency room today with complaints of 2 days history of worsening nausea and vomiting. The patient notes that she was in the ED approximately 3 days ago with a worsening back pain for which she was given Toradol tablets. She took some to control her back pain; however, she thinks it might have caused her to have nausea and vomiting. She has not been able to tolerate any fluid intake at home. She denies any difficulty urinating. Her back pain has gotten progressively worse over the past couple of years and she had a recent CT scan of the lumbar spine a few days ago that revealed a slightly worsening L2 compression fracture compared to previous study done in 2015. The patient denies any leg weakness, numbness, or incontinence of urine or stool; however, she has been having progressive difficulty ambulating around the house since she lives alone. She presented to the emergency room with worsening nausea and vomiting. She takes ibuprofen 3 or 4 times a day usually with meals and never on empty stomach. She denies any coffee-ground emesis, melena, or history of GI bleed. She was evaluated in the emergency room and had laboratory workup that revealed normal white count as well as normal hemoglobin and hematocrit. Her chemistry panel showed a slight hyponatremia as well as elevated BUN and creatinine compared to her baseline, which is likely secondary to dehydration. Her urinalysis was essentially unremarkable. She had an abdominal film that revealed a moderate amount of colonic stools; however, there was no evidence of bowel obstruction. She also described some associated epigastric discomfort when she gets nauseous and dry heaving; however, denies any abdominal pain at the time of admission. She had a right upper quadrant ultrasound that revealed evidence of cholelithiasis without cholecystitis or other abnormality. Given her ongoing symptoms and her known history of chronic back pain with L2 compression fracture, we were asked to see the patient to consider admission for hydration and also to consider social work associate consultation for short-term rehab placement if indicated. At the time of admission, the patient has no longer complaint of nausea, vomiting, or abdominal pain. She has been trying to take sips of clear liquids to see if she can keep it down. PAST MEDICAL HISTORY: As mentioned above significant for: 1. Hypertension. 2. Hypothyroidism. 3. History of asthma/COPD for which she has been on albuterol inhaler on a daily basis. 4. History of L2 compression fracture without any injury or fall. PAST SURGICAL HISTORY: Significant for partial thyroidectomy and inguinal hernia repair. CURRENT MEDICATIONS: Her medications at home include: 1. Albuterol HFA inhaler 1 to 2 puffs inhaled b.i.d. 2. Norvasc 10 mg p.o. daily. 3. Synthroid 88 mcg p.o. daily. 4. Diovan 320 mg p.o. daily. 5. Motrin 600 mg p.o. q.8 hours as needed for pain. 6. Ultram 50 mg p.o. q.6 hours as needed for pain. ALLERGIES: She is allergic to AMOXICILLIN. FAMILY HISTORY: She denies any family history of malignancies, heart disease, or stroke. SOCIAL HISTORY: The patient lives alone. 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 She had never smoked and denies consuming alcohol. Her son, Ryan Whitaker, is the healthcare proxy carrier. REVIEW OF SYSTEMS: See HPI, otherwise 14 points review of systems were evaluated and otherwise negative. PHYSICAL EXAMINATION GENERAL: She is a pleasant healthy-appearing elderly female in no acute distress or discomfort at the time of admission. VITAL SIGNS: Revealed a blood pressure of 114/69, pulse of 81, temperature of 99.1, respirations of 17, and O2 sats of 92% on room air. HEENT: Head is normocephalic, atraumatic. Sclerae anicteric. EOMs intact. Oropharynx is pink, moist, with no exudate. NECK: Supple. Trachea midline. No cervical adenopathy or thyromegaly. LUNGS: Clear to auscultation bilaterally. HEART: Regular rate and rhythm. Normal S1 and S2 without rubs, murmurs, or gallops. BACK: With normal curvature. No CVA tenderness. There is mild lower lumbar spine tenderness on exam, but no swelling, ecchymosis noted. ABDOMEN: Soft, round, nontender, and nondistended. There are no hernias, masses, or hepatosplenomegaly. No guarding, rigidity, or rebound tenderness and Ramos sign was negative. EXTREMITIES: Without cyanosis, clubbing, or edema. RECTAL: Exam deferred at this time. NEUROLOGIC: She is awake, alert, and oriented x3. Gross neurologic exam was normal. LABORATORY DATA/DIAGNOSTIC STUDIES: Laboratory workup: CBC with white count of 8000, hemoglobin of 13 and hematocrit of 38, platelets of 427. Chemistry panel with sodium of 138, potassium 3.8, chloride 100, CO2 of 22, BUN of 35 and creatinine of 1.5, glucose is 105. LFTs essentially within normal limits. Lipase is less than 10. TSH last obtained in August 2016 was 1.18. Accessory diagnostic data: As mentioned above. Abdominal x-ray with moderate amount of stool in the colon. No evidence of bowel obstruction. Chest x-ray with no acute changes. Gallbladder ultrasound with evidence of cholelithiasis without inflammation or pericholecystic fluid. ASSESSMENT: An 82-year-old female with past medical history significant for hypertension, hypothyroidism, and chronic back pain, who presents to the emergency room with 2 to 3 days history of worsening nausea, vomiting, and inability to tolerate p.o. fluid intake, who was found to be dehydrated and will be admitted for hydration as well as pain management of her chronic back pain and to consider social work associate consultation for short-term rehab placement. PLAN: 1. Nausea and vomiting. The patient will be admitted to the medical floor for IV fluid hydration. I will start her on clear liquid diet to see if she can tolerate her fluid intake and maybe advance her diet slowly as tolerated. I will provide Zofran as needed for control of her nausea as well as narcotics and Ultram as needed for her chronic back pain. She appears to be stable at this time and she has no complaints of nausea or vomiting. The patient also had no evidence of coffee-ground emesis or evidence of GI bleed; however, we will repeat her labs tomorrow to check her electrolytes as well as hemoglobin and hematocrit. 2. Chronic back pain. The patient with longstanding history of L2 compression fracture that has been managed conservatively. She lives alone and has been having difficulty ambulating for a long time. She would like to consider the option of short-term rehab placement and physical therapy during this admission. 3. Hypertension. We will maintain her on home medication including Diovan and Norvasc. 4. Hypothyroidism. We will continue her levothyroxine. 5. Constipation. We will provide Colace to take on a daily basis as well as MiraLAX and milk of magnesia to use as needed. 6. DVT prophylaxis: The patient is a high risk and will be covered with subcu heparin. 7. Code status: She is a full code. DISPOSITION: Admit to the medical floor for IV fluid hydration, symptomatic management of nausea and vomiting, as well as control of the chronic back pain, social consult is in progress to consider placement for short-term rehab. TIME SPENT: Approximately 60 minutes were spent admitting this patient with greater than 50% on taking history and performing physical exam. I have discussed the case with Dr. Yoon, who agreed to plans of care. BONNIE RAMON [id number]/CPS #: [id number] MTDChristopher
[2018-02-21] MEDS: Docusate CAP* 100 MG PO SCH (20:29)
[2018-02-21] MEDS: Albuterol HFA INHALER* 8 gm MDI INH SCH (21:02)
[2018-02-22] MEDS: oxyCODONE/Acetamin 5/325 MG* TAB PO PRN ×4 (03:36→19:52)
[2018-02-22] MEDS: NS 0.9% 1000 ML* 1,000 ML IV SCH (03:38)
[2018-02-22] MEDS: Heparin VIAL(*) 5000 UNITS/ML VIAL (FIVE THOUSAND) SUBCUT SCH ×3 (05:46→21:59)
[2018-02-22 05:51] LABS: ABS Basophils 0.1 10^3/ul (0-0.2); ABS Eosinophils 0.4 10^3/ul (0-0.6); ABS Lymphocytes 1.6 10^3/ul (1.0-4.8); ABS Monocytes 0.7 10^3/ul (0-0.8); ABS Nucleated RBC 0 10^3/ul; Eosinophil % 6.2 % (0-6); Hematocrit 32 % (35-47); Hemoglobin 10.7 g/dl (12.0-16.0); Lymphocyte % 28.1 % (25-47); Mean Corpuscular HGB Conc 33 g/dl (31-36); Mean Corpuscular Hemoglobin 30 pg (27-31); Mean Corpuscular Volume 89 fL (80-97); Mean Platelet Volume 7.2 um3 (7.4-10.4); Nucleated Red Blood Cells % 0; Platelet Count 386 10^3/ul (150-450); Red Blood Count 3.62 10^6/ul (4.00-5.40); Red Cell Distribution Width 13 % (10.5-15); White Blood Count 5.7 10^3/ul (3.5-10.8)
[2018-02-22 06:04] LABS: EGFR Non-African American 39.9 (>60)
[2018-02-22] MEDS: Albuterol HFA INHALER* 8 gm MDI INH SCH ×2 (07:53→20:23)
[2018-02-22] MEDS: Omeprazole CAP* 20 MG PO SCH ×2 (09:04→19:52)
[2018-02-22] MEDS: Docusate CAP* 100 MG PO SCH ×2 (09:04→19:52)
[2018-02-22] MEDS: Valsartan TAB* 160 MG PO SCH (09:05)
[2018-02-22] MEDS: Levothyroxine TAB* 88 MCG TAB PO SCH (09:05)
[2018-02-22] MEDS ORDERED: Cyclobenzaprine TAB* 10 MG PO PRN (10:50)
--- NOTE | 2018-02-22 16:15 | PN ---
Subjective Date of Service: 02/22/18 Interval History: Patient continues to have severe pain in hips and thighs. Patient states pain is worse with movement, is an ache, denies sharp pains down backs of legs. States good relief with Percocet. Patient denies CP, SOB, N/V, abdominal pain, diarrhea, F/C, or other pain. Discussed with patient and family possibility of rehab. Family History: Unchanged from Admission Social History: Unchanged from Admission Past Medical History: Unchanged from Admission Objective Active Medications: Acetaminophen (Tylenol Tab*) 650 mg PO Q4H PRN PRN Reason: FEVER/PAIN Al Hydrox/Mg Hydrox/Simethicone (Maalox Plus*) 30 ml PO Q6H PRN PRN Reason: INDIGESTION Albuterol (Ventolin 2.5 Mg/3 Ml Neb.Carley*) 2.5 mg INH [id number] AWAKE PRN PRN Reason: sob/wheezing Albuterol (Ventolin Hfa Inhaler*) 2 puff INH BID [facility] Last Admin: 02/22/18 07:53 Dose: 2 puff Cyclobenzaprine HCl (Flexeril Tab*) 10 mg PO TID PRN PRN Reason: SPASMS Docusate Sodium (Colace Cap*) 100 mg PO BID [facility] Last Admin: 02/22/18 09:04 Dose: 100 mg Heparin Sodium (Porcine) (Heparin Vial(*)) 5,000 units SUBCUT Q8HR [facility] Last Admin: 02/22/18 13:46 Dose: 5,000 units Sodium Chloride (Ns 0.9% 1000 Ml*) 1,000 mls @ 100 mls/hr IV PER RATE [facility] Last Admin: 02/22/18 03:38 Dose: 100 mls/hr Levothyroxine Sodium (Synthroid Tab*) 88 mcg PO 0800 [facility] Last Admin: 02/22/18 09:05 Dose: 88 mcg Magnesium Hydroxide (Milk Of Magnesia Liq*) 30 ml PO Q4H PRN PRN Reason: CONSTIPATION Morphine Sulfate (Morphine Vial*) 2 mg IV Q2H PRN PRN Reason: PAIN Omeprazole (Prilosec Cap*) 20 mg PO BID [facility] Last Admin: 02/22/18 09:04 Dose: 20 mg Ondansetron HCl (Zofran Odt Tab*) 4 mg SL Q6H PRN PRN Reason: NAUSEA/VOMITING Oxycodone/Acetaminophen (Percocet 5/325 Tab*) 1 tab PO Q4H PRN PRN Reason: Pain Last Admin: 02/22/18 14:32 Dose: 1 tab Polyethylene Glycol/Electrolytes (Miralax*) 17 gm PO DAILY PRN PRN Reason: CONSTIPATION Valsartan (Diovan Tab*) 320 mg PO DAILY JOI Last Admin: 02/22/18 09:05 Dose: 320 mg Vital Signs - 8 hr 02/22/18 02/22/18 02/22/18 10:43 11:50 12:31 Temperature 98.7 F Pulse Rate 74 74 Respiratory 18 16 Rate Blood Pressure 111/55 111/55 (mmHg) O2 Sat by Pulse 95 Oximetry 02/22/18 02/22/18 02/22/18 12:32 12:43 13:22 Temperature Pulse Rate 99 71 Respiratory 18 Rate Blood Pressure 114/61 117/54 (mmHg) O2 Sat by Pulse Oximetry 02/22/18 14:32 Temperature Pulse Rate Respiratory 18 Rate Blood Pressure (mmHg) O2 Sat by Pulse Oximetry Oxygen Devices in Use Now: None Appearance: Patient is an 82yo female who appears stated age and is sitting in the bed in [employer]. Eyes: No Scleral Icterus, PERRLA Ears/Nose/Mouth/Throat: NL Teeth, Lips, Gums, Clear Oropharnyx, Mucous Membranes Moist Neck: NL Appearance and Movements; NL JVP, Trachea Midline Respiratory: Symmetrical Chest Expansion and Respiratory Effort, Clear to Auscultation Cardiovascular: NL Sounds; No Murmurs; No JVD, RRR, No Edema Abdominal: NL Sounds; No Tenderness; No Distention, No Hepatosplenomegaly Lymphatic: No Cervical Adenopathy Extremities: No Edema, No Clubbing, Cyanosis Skin: No Rash or Ulcers, No Nodules or Sclerosis Neurological: Alert and Oriented x 3, NL Sensation, - - Antalgic gait. Weakness with dorsiflexion of Left foot. Result Diagrams: 02/22/18 05:38 02/22/18 05:38 Additional Lab and Data: Lab Results Microbiology and Other Data: Microbiology 02/21/18 09:30 Urine Culture - Final Urine 02/21/18 08:33 Stool Occult Blood (CHAYA) - Final Stool Assess/Plan/Problems-Billing Assessment: Patient is an 82yo female with a PMH for L2 compression fracture, HTN, HLD, Asthma, here with increasing pain in her back in the setting of worsened L2 compression fracture, and spinal stenosis to the point she cannot function at home. - Patient Problems (1) Back pain Current Visit: Yes Status: Acute Code(s): M54.9 - DORSALGIA, UNSPECIFIED SNOMED Code(s): 959076915 Comment: L2 compression fracture with progression as well as L4-L5 canal stenosis. Severe pain. Unable to function at home. No saddle anesthesia, incontinence. Weakness of dorsiflexion of left foot. Will get MRI lumbar spine and consider neurosurgical evaluation. PT/OT. Has Rehab needs per PT. (2) HTN (hypertension) Current Visit: Yes Status: Acute Code(s): I10 - ESSENTIAL (PRIMARY) HYPERTENSION SNOMED Code(s): 04714656 Comment: Normotensive, continue Valsartan. (3) N&V (nausea and vomiting) Current Visit: Yes Status: Acute Code(s): R11.2 - NAUSEA WITH VOMITING, UNSPECIFIED SNOMED Code(s): 24221658 Comment: With intermittent epigastric pain. In setting of longterm NSAID use and New Tramadol. Combination of Gastritis and Opiate induced nausea. Resolved. Hold NSAIDs and tramadol. BID PPI. (4) Asthma Current Visit: Yes Status: Acute Code(s): J45.909 - UNSPECIFIED ASTHMA, UNCOMPLICATED SNOMED Code(s): 929132914 Comment: PRN albuterol, No exacerbation. (5) Hypothyroid Current Visit: Yes Status: Acute Code(s): E03.9 - HYPOTHYROIDISM, UNSPECIFIED SNOMED Code(s): 68286960 Comment: Continue levothyroxine. (6) DVT prophylaxis Current Visit: Yes Status: Acute Code(s): PRE0230 - SNOMED Code(s): 755853009 Comment: Heparin SubQ. Status and Disposition: Inpatient, may need placement.
[2018-02-23] MEDS: oxyCODONE/Acetamin 5/325 MG* TAB PO PRN ×5 (02:29→21:29)
[2018-02-23] MEDS: Heparin VIAL(*) 5000 UNITS/ML VIAL (FIVE THOUSAND) SUBCUT SCH ×3 (05:42→21:27)
[2018-02-23] MEDS: Albuterol HFA INHALER* 8 gm MDI INH SCH ×2 (08:16→19:23)
[2018-02-23] MEDS: Omeprazole CAP* 20 MG PO SCH ×2 (08:57→21:27)
[2018-02-23] MEDS: Docusate CAP* 100 MG PO SCH ×2 (08:57→21:27)
[2018-02-23] MEDS: Valsartan TAB* 160 MG PO SCH (08:57)
[2018-02-23] MEDS: Levothyroxine TAB* 88 MCG TAB PO SCH (08:57)
--- NOTE | 2018-02-23 09:15 | RAD ---
Indication: Back pain. Image sequences: Sagittal T1, T2, STIR, axial T1 and T2-weighted images of the lumbar spine were obtained. The vertebral bodies appear normal in height. Normal bone marrow signal is noted. At L5-S1 the disc is relatively well-preserved with minimal degenerative disc disease. Mild facet arthropathy is noted. No central or foraminal stenosis is noted. There is grade 1 spondylolisthesis of L4 on L5 with marked facet hypertrophy. There is marked compression of the thecal sac and this may represent moderate to severe stenosis. At L3-L4 broad-based protrusion flattens the thecal sac. Facet arthropathy is noted. No central foraminal stenosis is noted. At L2-L3 and L1-L2 minimal broad-based protrusions noted. No definite foraminal stenosis is noted. IMPRESSION: Multilevel degenerative disc disease is noted with grade 1 spondylolisthesis of L4 on 5 with marked spinal stenosis due to spondylolisthesis and facet arthropathy. Degenerative disc disease at L1-L2, L2-L3, L3-L4 and L5-S1.
--- NOTE | 2018-02-23 15:12 | CONSULT ---
Consult Consult: Neurosurgery Consult Date of Admission: 02/21/18 Date of Consult: 02/23/18 Reason for Consult: Spondylolisthesis and stenosis L4-5 Referring Provider: BONNIE Abbott HPI: This is an 82 year old female with past medical history significant for HTN , asthma, and hypothyroidism who presented to [facility] for a second time this month on 02/21/18 with complaint of low back pain. The patient and her son Ryan provide the history. She states that she presented to the ED with complaint of bilateral hip pain, right worse than left, present for the previous 3 weeks. She demonstrates area of pain primarily in the low back to right buttock. The pain was tolerable at onset and has worsened since, to the degree that she is unable to ambulate well. She was taking ibuprofen, using a heating pad across the low back and taking baths for pain relief. When these treatments were no longer effective, she decided to go to the ED. She denies history of low back pain but does report symptoms of stenosis. She describes a generalized weakness , fatigue and ache in the bilateral lower extremities with prolonged ambulation. Ryan reports that this has been going on for at least several months and that her ability to ambulate is worsening. Currently, she is feeling quite well and denies pain in the low back and lower extremities. Denies numbness, tingling and weakness of the lower extremities. She has been treated with percocet while in the hospital and she reports this has been effective in improving the pain. She also believes resting in bed has been helpful. MRI was obtained for evaluation of the lumbar spine and was reviewed today. Past Medical History: 1. HTN 2. Hypothyroidism 3. Asthma 4. L4-5 Spondylolisthesis and stenosis Past Surgical History: 1. Thyroidectomy 2. Hernia repair 3. Cataract extractions Home Medications: 1. Levothyroxine TAB* [Synthroid 88 MCG TAB*] 88 mcg PO 0800 04/01/13 [History Confirmed 02/21/18] 2. Valsartan TAB* [Diovan TAB*] 320 mg PO DAILY 04/01/13 [History Confirmed ] 3. amLODIPine TAB* [Norvasc TAB*] 10 mg PO DAILY 09/15/16 [History Confirmed ] 4. Albuterol HFA INHALER* [Ventolin HFA Inhaler*] 1 - 2 puff INH BID 02/17/18 [ History Confirmed 02/21/18] 5. Ibuprofen TAB* [Motrin TAB* 600 MG] 600 mg PO Q8H PRN #30 tab 02/17/18 [Rx Confirmed 02/21/18] 6. traMADol TAB* [Ultram*] 50 mg PO Q6HR PRN #15 tab MDD 4 02/18/18 [Rx Confirmed 02/21/18] Allergies: 1. Amoxicillin Social History:This patient lives alone at [facility]. She denies smoking and alcohol use. ROS: Full ROS completed. Pertinent findings stated in HPI and all others negative. Physical Exam: Vital Signs: Temp Pulse Resp BP Pulse Ox 98.4 F 67 18 127/57 95 02/23/18 12:15 02/23/18 12:15 02/23/18 13:55 02/23/18 12:15 02/23/18 12:15 General: Alert and oriented. Recumbent in bed, no acute distress or pain. HEENT: Head is normocephalic and atraumatic. PERRL, EOMI. Gross hearing intact. Moist mucus membranes. Neck: Neck is without obvious deformity. Supple and symmetric. Nontender to palpation. CV: Radial and pedal pulses 2+ and equal. Lungs: Lungs are clear. Breathing is nonlabored. Andomen: The abdomen is obese. Normoactive bowel sounds. Nontender, nondistended. Neuro: Speech is clear. Answers questions appropriately. CN II-XII intact. Sensation intact and equal throughout. Strength in lower extremities 5/5 bilaterally and 5/5 in upper extremities. Patellar reflex 2+ bilaterally. SLR negative bilaterally. Extremities: No pedal edema. Hips are nontender to palpation. No hip pain with hip rotation bilaterally. Imagin. CT lumbar spine on 02/17/18 shows L4-5 spondylolisthesis, multilevel degenerative disc disease. 2. MRI of the lumbar spine on 02/22/18 shows multilevel degenerative disc disease, L4-5 spondylolisthesis and severe stenosis. Assessment/Plan: This is an 82 year old female with past medical history significant for HTN, hypothyroidism and asthma who presented to [facility] ED with bilateral low back to buttocks pain, symptomatic lumbar stenosis for at least the previous 3 weeks. She is feeling quite well currently with PO pain medications and rest. MRI of the lumbar spine was obtained showing multilevel degenerative disc disease, L4-5 spondylolisthesis and severe stenosis. MRI was reviewed with the patient and her son Ryan. Treatment options we discussed including rehab with physical therapy and surgery with decompressive lumbar laminectomy L4-5. She would like time to consider these options, she is leaning toward rehab first and following up with neurosurgery as an outpatient.
--- NOTE | 2018-02-23 15:27 | PN ---
Subjective Date of Service: 02/23/18 Interval History: Patient has improved pain which is worse with movement but is well controlled on Percocet. Patient denies CP, SOB, N/V, abdominal pain, diarrhea, constipation , F/C, dysuria, or other pain. Family History: Unchanged from Admission Social History: Unchanged from Admission Past Medical History: Unchanged from Admission Objective Active Medications: Acetaminophen (Tylenol Tab*) 650 mg PO Q4H PRN PRN Reason: FEVER/PAIN Al Hydrox/Mg Hydrox/Simethicone (Maalox Plus*) 30 ml PO Q6H PRN PRN Reason: INDIGESTION Albuterol (Ventolin 2.5 Mg/3 Ml Neb.Carley*) 2.5 mg INH [id number] AWAKE PRN PRN Reason: sob/wheezing Albuterol (Ventolin Hfa Inhaler*) 2 puff INH BID [facility] Last Admin: 02/23/18 08:16 Dose: 2 puff Cyclobenzaprine HCl (Flexeril Tab*) 10 mg PO TID PRN PRN Reason: SPASMS Docusate Sodium (Colace Cap*) 100 mg PO BID [facility] Last Admin: 02/23/18 08:57 Dose: 100 mg Heparin Sodium (Porcine) (Heparin Vial(*)) 5,000 units SUBCUT Q8HR [facility] Last Admin: 02/23/18 13:57 Dose: 5,000 units Levothyroxine Sodium (Synthroid Tab*) 88 mcg PO 0800 [facility] Last Admin: 02/23/18 08:57 Dose: 88 mcg Magnesium Hydroxide (Milk Of Magnesia Liq*) 30 ml PO Q4H PRN PRN Reason: CONSTIPATION Morphine Sulfate (Morphine Vial*) 2 mg IV Q2H PRN PRN Reason: PAIN Omeprazole (Prilosec Cap*) 20 mg PO BID [facility] Last Admin: 02/23/18 08:57 Dose: 20 mg Ondansetron HCl (Zofran Odt Tab*) 4 mg SL Q6H PRN PRN Reason: NAUSEA/VOMITING Oxycodone/Acetaminophen (Percocet 5/325 Tab*) 1 tab PO Q4H PRN PRN Reason: Pain Last Admin: 02/23/18 10:23 Dose: 1 tab Polyethylene Glycol/Electrolytes (Miralax*) 17 gm PO DAILY PRN PRN Reason: CONSTIPATION Valsartan (Diovan Tab*) 320 mg PO DAILY [facility] Last Admin: 02/23/18 08:57 Dose: 320 mg Vital Signs - 8 hr 02/23/18 02/23/18 02/23/18 08:00 08:07 08:17 Temperature 98.5 F Pulse Rate 77 85 Respiratory 16 16 14 Rate Blood Pressure 131/58 (mmHg) O2 Sat by Pulse 97 95 Oximetry 02/23/18 02/23/18 02/23/18 10:18 10:23 11:15 Temperature Pulse Rate Respiratory 18 18 Rate Blood Pressure (mmHg) O2 Sat by Pulse 95 Oximetry 02/23/18 02/23/18 12:15 13:55 Temperature 98.4 F Pulse Rate 67 Respiratory 20 18 Rate Blood Pressure 127/57 (mmHg) O2 Sat by Pulse 95 Oximetry Oxygen Devices in Use Now: None Appearance: Patient is an 82yo female who appears stated age and is sitting in the bed in NAD. Eyes: No Scleral Icterus, PERRLA Ears/Nose/Mouth/Throat: NL Teeth, Lips, Gums, Clear Oropharnyx, Mucous Membranes Moist Neck: NL Appearance and Movements; NL JVP, Trachea Midline Respiratory: Symmetrical Chest Expansion and Respiratory Effort, Clear to Auscultation Cardiovascular: NL Sounds; No Murmurs; No JVD, RRR, No Edema Abdominal: NL Sounds; No Tenderness; No Distention, No Hepatosplenomegaly Lymphatic: No Cervical Adenopathy Extremities: No Edema, No Clubbing, Cyanosis Skin: No Rash or Ulcers, No Nodules or Sclerosis Neurological: Alert and Oriented x 3, NL Sensation, - - Antalgic Gait, 4/5 strength with dorsiflexion in left foot. Result Diagrams: 02/22/18 05:38 02/23/18 05:45 Additional Lab and Data: Lab Results Microbiology and Other Data: Microbiology 02/21/18 09:30 Urine Culture - Final Urine 02/21/18 08:33 Stool Occult Blood (CHAYA) - Final Stool Assess/Plan/Problems-Billing Assessment: Patient is an 82yo female with a PMH for L2 compression fracture, HTN, HLD, Asthma, here with increasing pain in her back in the setting of worsened L2 compression fracture, and spinal stenosis to the point she cannot function at home. - Patient Problems (1) Back pain Current Visit: Yes Status: Acute Code(s): M54.9 - DORSALGIA, UNSPECIFIED SNOMED Code(s): 193334544 Comment: L2 compression fracture with progression as well as L4-L5 canal stenosis. Severe pain. Unable to function at home. No saddle anesthesia, incontinence. Weakness of dorsiflexion of left foot. MRI shows spondylolisthesis. Appreciate neurosurgical input. Patient would like to go to rehab and have PT while she evaluates surgery. Contiune Percocet, Felxeril for pain control. (2) HTN (hypertension) Current Visit: Yes Status: Acute Code(s): I10 - ESSENTIAL (PRIMARY) HYPERTENSION SNOMED Code(s): 77541821 Comment: Normotensive, continue Valsartan. (3) N&V (nausea and vomiting) Current Visit: Yes Status: Acute Code(s): R11.2 - NAUSEA WITH VOMITING, UNSPECIFIED SNOMED Code(s): 94077083 Comment: With intermittent epigastric pain. In setting of manager long term care NSAID use and New Tramadol. Combination of Gastritis and Opiate induced nausea. Resolved. Hold NSAIDs and tramadol. BID PPI. (4) Asthma Current Visit: Yes Status: Acute Code(s): J45.909 - UNSPECIFIED ASTHMA, UNCOMPLICATED SNOMED Code(s): 808217964 Comment: PRN albuterol, No exacerbation. (5) Hypothyroid Current Visit: Yes Status: Acute Code(s): E03.9 - HYPOTHYROIDISM, UNSPECIFIED SNOMED Code(s): 34681705 Comment: Continue levothyroxine. (6) DVT prophylaxis Current Visit: Yes Status: Acute Code(s): KZX4376 - SNOMED Code(s): 205587571 Comment: Heparin SubQ. Status and Disposition: Inpatient, may need placement.
[2018-02-24] MEDS: oxyCODONE/Acetamin 5/325 MG* TAB PO PRN ×5 (01:30→21:23)
[2018-02-24] MEDS: Heparin VIAL(*) 5000 UNITS/ML VIAL (FIVE THOUSAND) SUBCUT SCH ×3 (05:50→21:32)
[2018-02-24] MEDS: Albuterol HFA INHALER* 8 gm MDI INH SCH ×2 (07:23→20:17)
[2018-02-24] MEDS: Valsartan TAB* 160 MG PO SCH (07:29)
[2018-02-24] MEDS: Docusate CAP* 100 MG PO SCH ×2 (07:29→21:24)
[2018-02-24] MEDS: Omeprazole CAP* 20 MG PO SCH ×2 (07:29→21:25)
[2018-02-24] MEDS: Levothyroxine TAB* 88 MCG TAB PO SCH (07:29)
--- NOTE | 2018-02-24 14:12 | PN ---
Subjective Date of Service: 02/24/18 Interval History: Pt reports she feels a little better today with more appetite, some nausea this am but now feels better. Reports 10/10 pain at times in her lower back "more on the right" denies radiation at this time but has radiated down her right leg. She denies any numbness, weakness, tingling. No urinary or bowel incontinence. She reports she is now more interested in going through with the surgery. Family History: Unchanged from Admission Social History: Unchanged from Admission Past Medical History: Unchanged from Admission Objective Active Medications: Acetaminophen (Tylenol Tab*) 650 mg PO Q4H PRN PRN Reason: FEVER/PAIN Al Hydrox/Mg Hydrox/Simethicone (Maalox Plus*) 30 ml PO Q6H PRN PRN Reason: INDIGESTION Albuterol (Ventolin 2.5 Mg/3 Ml Neb.Carley*) 2.5 mg INH [id number] AWAKE PRN PRN Reason: sob/wheezing Albuterol (Ventolin Hfa Inhaler*) 2 puff INH BID [facility] Last Admin: 02/24/18 07:23 Dose: 2 puff Cyclobenzaprine HCl (Flexeril Tab*) 10 mg PO TID PRN PRN Reason: SPASMS Docusate Sodium (Colace Cap*) 100 mg PO BID [facility] Last Admin: 02/24/18 07:29 Dose: 100 mg Heparin Sodium (Porcine) (Heparin Vial(*)) 5,000 units SUBCUT Q8HR [facility] Last Admin: 02/24/18 13:00 Dose: 5,000 units Levothyroxine Sodium (Synthroid Tab*) 88 mcg PO 0800 [facility] Last Admin: 02/24/18 07:29 Dose: 88 mcg Magnesium Hydroxide (Milk Of Magnesia Liq*) 30 ml PO Q4H PRN PRN Reason: CONSTIPATION Morphine Sulfate (Morphine Vial*) 2 mg IV Q2H PRN PRN Reason: PAIN Omeprazole (Prilosec Cap*) 20 mg PO BID [facility] Last Admin: 02/24/18 07:29 Dose: 20 mg Ondansetron HCl (Zofran Odt Tab*) 4 mg SL Q6H PRN PRN Reason: NAUSEA/VOMITING Oxycodone/Acetaminophen (Percocet 5/325 Tab*) 1 tab PO Q4H PRN PRN Reason: Pain Last Admin: 02/24/18 12:56 Dose: 1 tab Polyethylene Glycol/Electrolytes (Miralax*) 17 gm PO DAILY PRN PRN Reason: CONSTIPATION Valsartan (Diovan Tab*) 320 mg PO DAILY [facility] Last Admin: 02/24/18 07:29 Dose: 320 mg Vital Signs - 8 hr 02/24/18 02/24/18 02/24/18 07:17 07:24 07:29 Temperature 98.3 F Pulse Rate 66 84 Respiratory 15 14 18 Rate Blood Pressure 138/61 (mmHg) O2 Sat by Pulse 97 95 Oximetry 02/24/18 02/24/18 02/24/18 07:33 10:09 12:56 Temperature Pulse Rate Respiratory 18 18 18 Rate Blood Pressure (mmHg) O2 Sat by Pulse 95 Oximetry Oxygen Devices in Use Now: None Appearance: well developed elderly female A+O x3 sitting up in bed in NAD Eyes: No Scleral Icterus, PERRLA Ears/Nose/Mouth/Throat: NL Teeth, Lips, Gums, Mucous Membranes Moist Neck: NL Appearance and Movements; NL JVP Respiratory: Symmetrical Chest Expansion and Respiratory Effort, Clear to Auscultation Cardiovascular: NL Sounds; No Murmurs; No JVD, RRR, No Edema Abdominal: NL Sounds; No Tenderness; No Distention Extremities: No Edema, No Clubbing, Cyanosis Skin: No Rash or Ulcers, No Nodules or Sclerosis Neurological: Alert and Oriented x 3, NL Sensation Lines/Tubes/Other Access: Clean, Dry and Intact Peripheral IV Nutrition: Taking PO's Result Diagrams: 02/22/18 05:38 02/23/18 05:45 Additional Lab and Data: Lab Results Microbiology and Other Data: Microbiology 02/21/18 09:30 Urine Culture - Final Urine 02/21/18 08:33 Stool Occult Blood (CHAYA) - Final Stool Assess/Plan/Problems-Billing Assessment: Patient is an 82yo female with a PMH for L2 compression fracture, HTN, HLD, Asthma, here with increasing pain in her back in the setting of worsened L2 compression fracture, and spinal stenosis to the point she cannot function at home. - Patient Problems (1) Back pain Comment: L2 compression fracture with progression as well as L4-L5 canal stenosis. Severe pain, slight improvement since admission. Unable to function at home. No saddle anesthesia, incontinence. Weakness of dorsiflexion of left foot. MRI shows spondylolisthesis. Appreciate neurosurgical input. Patient now is thinking seriously about surgery, but is still deciding. Contiune Percocet, Flexeril for pain control. Bowel regimen (2) N&V (nausea and vomiting) Comment: Improving since admission, a little nauseous this am but is eating more than she has been.Was having intermittent epigastric pain. In setting of longterm NSAID use and New Tramadol. Combination of Gastritis and Opiate induced nausea? Hold NSAIDs and tramadol. BID PPI. (3) Asthma Comment: PRN albuterol, No exacerbation. (4) HTN (hypertension) Comment: Normotensive, continue Valsartan. (5) Hypothyroid Comment: Continue levothyroxine. (6) DVT prophylaxis Comment: Heparin SubQ. Status and Disposition: Inpatient. Patient is seriously considering surgery at this point. She may need subacute rehab
[2018-02-24] MEDS ORDERED: Conjugated Estrogens VAG CM* 42.5 gm TUBE VAGINAL SCH (21:00)
[2018-02-25] MEDS: oxyCODONE/Acetamin 5/325 MG* TAB PO PRN ×5 (02:41→23:57)
[2018-02-25] MEDS: Heparin VIAL(*) 5000 UNITS/ML VIAL (FIVE THOUSAND) SUBCUT SCH ×3 (06:14→21:47)
[2018-02-25 06:57] LABS: EGFR Non-African American 65.8 (>60)
[2018-02-25] MEDS: Omeprazole CAP* 20 MG PO SCH ×2 (07:54→20:10)
[2018-02-25] MEDS: Valsartan TAB* 160 MG PO SCH (07:54)
[2018-02-25] MEDS: Docusate CAP* 100 MG PO SCH ×2 (07:54→20:10)
[2018-02-25] MEDS: Levothyroxine TAB* 88 MCG TAB PO SCH (07:54)
[2018-02-25 08:09] LABS: ABS Basophils 0.1 10^3/ul (0-0.2); ABS Eosinophils 0.4 10^3/ul (0-0.6); ABS Lymphocytes 1.8 10^3/ul (1.0-4.8); ABS Monocytes 0.6 10^3/ul (0-0.8); ABS Neutrophils 3.2 10^3/ul (1.5-7.7); ABS Nucleated RBC 0 10^3/ul; Eosinophil % 6.1 % (0-6); Hematocrit 34 % (35-47); Hemoglobin 11.7 g/dl (12.0-16.0); Lymphocyte % 29.9 % (25-47); Mean Corpuscular HGB Conc 34 g/dl (31-36); Mean Corpuscular Hemoglobin 30 pg (27-31); Mean Corpuscular Volume 88 fL (80-97); Mean Platelet Volume 8.1 um3 (7.4-10.4); Nucleated Red Blood Cells % 0.1; Platelet Count 445 10^3/ul (150-450); Red Cell Distribution Width 13 % (10.5-15); White Blood Count 6.2 10^3/ul (3.5-10.8)
[2018-02-25] MEDS: Albuterol HFA INHALER* 8 gm MDI INH SCH ×2 (08:17→19:29)
--- NOTE | 2018-02-25 10:52 | PN ---
Subjective Date of Service: 02/25/18 Interval History: Pt feels well. Uses Percocet with god pain control. walked with PT and walker Family History: Unchanged from Admission Social History: Unchanged from Admission Past Medical History: Unchanged from Admission Objective Active Medications: Acetaminophen (Tylenol Tab*) 650 mg PO Q4H PRN PRN Reason: FEVER/PAIN Last Admin: 02/25/18 07:54 Dose: 650 mg Al Hydrox/Mg Hydrox/Simethicone (Maalox Plus*) 30 ml PO Q6H PRN PRN Reason: INDIGESTION Albuterol (Ventolin 2.5 Mg/3 Ml Neb.Carley*) 2.5 mg INH [id number] AWAKE PRN PRN Reason: sob/wheezing Albuterol (Ventolin Hfa Inhaler*) 2 puff INH BID [facility] Last Admin: 02/25/18 08:17 Dose: 2 puff Cyclobenzaprine HCl (Flexeril Tab*) 10 mg PO TID PRN PRN Reason: SPASMS Docusate Sodium (Colace Cap*) 100 mg PO BID [facility] Last Admin: 02/25/18 07:54 Dose: 100 mg Estrogens Conjugated (Premarin Vag Cream*) 1 applic VAGINAL 2100 [facility] Heparin Sodium (Porcine) (Heparin Vial(*)) 5,000 units SUBCUT Q8HR [facility] Last Admin: 02/25/18 06:14 Dose: 5,000 units Levothyroxine Sodium (Synthroid Tab*) 88 mcg PO 0800 [facility] Last Admin: 02/25/18 07:54 Dose: 88 mcg Magnesium Hydroxide (Milk Of Magnesia Liq*) 30 ml PO Q4H PRN PRN Reason: CONSTIPATION Omeprazole (Prilosec Cap*) 20 mg PO BID [facility] Last Admin: 02/25/18 07:54 Dose: 20 mg Ondansetron HCl (Zofran Odt Tab*) 4 mg SL Q6H PRN PRN Reason: NAUSEA/VOMITING Last Admin: 02/25/18 06:16 Dose: 4 mg Oxycodone/Acetaminophen (Percocet 5/325 Tab*) 1 tab PO Q4H PRN PRN Reason: Pain Last Admin: 02/25/18 09:09 Dose: 1 tab Polyethylene Glycol/Electrolytes (Miralax*) 17 gm PO DAILY PRN PRN Reason: CONSTIPATION Valsartan (Diovan Tab*) 320 mg PO DAILY [facility] Last Admin: 02/25/18 07:54 Dose: 320 mg Vital Signs - 8 hr 02/25/18 02/25/18 02/25/18 03:17 06:15 07:15 Temperature 97.8 F 98.7 F Pulse Rate 73 69 Respiratory 18 16 14 Rate Blood Pressure 124/61 136/66 (mmHg) O2 Sat by Pulse 95 95 Oximetry 02/25/18 02/25/18 02/25/18 08:00 08:18 09:09 Temperature Pulse Rate 69 Respiratory 16 14 17 Rate Blood Pressure (mmHg) O2 Sat by Pulse 96 96 Oximetry Oxygen Devices in Use Now: None Appearance: 82 yo f in n[place], aAOx3 Eyes: No Scleral Icterus, PERRLA Ears/Nose/Mouth/Throat: NL Teeth, Lips, Gums, Mucous Membranes Moist Neck: NL Appearance and Movements; NL JVP, Trachea Midline Respiratory: Symmetrical Chest Expansion and Respiratory Effort Cardiovascular: NL Sounds; No Murmurs; No JVD, RRR Abdominal: NL Sounds; No Tenderness; No Distention Lymphatic: No Cervical Adenopathy Extremities: No Edema, No Clubbing, Cyanosis Skin: No Rash or Ulcers, No Nodules or Sclerosis Neurological: Alert and Oriented x 3, - - pain in R buttock illicited on R leg raise, no motor deficit noted Result Diagrams: 02/25/18 06:22 02/25/18 06:22 Additional Lab and Data: Lab Results Microbiology and Other Data: Microbiology 02/21/18 09:30 Urine Culture - Final Urine 02/21/18 08:33 Stool Occult Blood (CHAYA) - Final Stool Assess/Plan/Problems-Billing Assessment: Patient is an 82yo female with a PMH for L2 compression fracture, HTN, HLD, Asthma, here with increasing pain in her back in the setting of worsened L2 compression fracture, and spinal stenosis to the point she cannot function at home. - Patient Problems (1) Back pain Comment: L2 compression fracture with progression as well as L4-L5 canal stenosis. Severe pain, slight improvement since admission. Unable to function at home. No saddle anesthesia, incontinence. Weakness of dorsiflexion of left foot appears to have resolved MRI shows spondylolisthesis. Appreciate neurosurgical input. Patient now is thinking seriously about surgery, but is still deciding. Contiune Percocet, Flexeril for pain control. Bowel regimen Plan to d/c to STR , medically stable to d/c. will f/u with Dr. Carter as outpatient (2) Asthma Comment: PRN albuterol, No exacerbation. (3) HTN (hypertension) Comment: Normotensive, continue Valsartan. (4) Hypothyroid Comment: Continue levothyroxine. (5) Uterine prolapse Comment: estrogen cream started . Ror outpatient f/u with Dr. Miller (6) DVT prophylaxis Comment: Heparin SubQ. Status and Disposition: Inpatient. Ready to d/c to [facility] when bed available
[2018-02-25] MEDS ORDERED: Conjugated Estrogens VAG CM* 42.5 gm TUBE VAGINAL SCH (21:00)
[2018-02-26] MEDS: oxyCODONE/Acetamin 5/325 MG* TAB PO PRN ×2 (06:15→12:23)
[2018-02-26] MEDS: Heparin VIAL(*) 5000 UNITS/ML VIAL (FIVE THOUSAND) SUBCUT SCH (06:15)
[2018-02-26] MEDS: Omeprazole CAP* 20 MG PO SCH (07:44)
[2018-02-26] MEDS: Levothyroxine TAB* 88 MCG TAB PO SCH (07:45)
[2018-02-26] MEDS: Valsartan TAB* 160 MG PO SCH (07:45)
[2018-02-26] MEDS: Docusate CAP* 100 MG PO SCH (07:45)
[2018-02-26] MEDS: Albuterol HFA INHALER* 8 gm MDI INH SCH (08:22)
[2018-02-26 12:08] VITALS: BP 122/44
--- NOTE | 2018-02-26 13:31 | DS ---
CC: Dr. Ayers; Dr. Ortiz; Dr. Miller * DISCHARGE SUMMARY: DATE OF ADMISSION: 02/21/18 DATE OF DISCHARGE: 02/26/18 PRIMARY CARE PROVIDER: Dr. Ayers. DISCHARGE DIAGNOSES: 1. L2 compression fracture diagnosed on CT of the lumbar spine on 02/17/18. 2. Lumbar spinal stenosis. The patient was seen by Dr. Ortiz' service during the hospital stay. 3. Intractable back pain due to above. SECONDARY DIAGNOSES: 1. Hypertension. 2. Hypothyroidism. 3. History of asthma/chronic obstructive pulmonary disease. 4. Vaginal prolapse. MEDICATIONS AT DISCHARGE: Include: 1. Albuterol inhaler 1 to 2 puffs b.i.d. p.r.n. 2. Levothyroxine 88 mcg daily. 3. Diovan 320 mg daily. 4. Conjugated estrogen vaginal cream 1 application vaginally at night. 5. Colace 100 mg b.i.d. 6. Percocet 1 tablet every 4 hours p.r.n. 7. MiraLAX 17 g daily p.r.n. LABORATORY DATA AND STUDIES PERFORMED DURING THE HOSPITAL STAY: Included on 09/14, white blood cell count of 6.2, hemoglobin 11.7, hematocrit 34, and platelets 445. Sodium 136, potassium 4.2, chloride 101, carbon dioxide 28, BUN 11, creatinine 0.83. Stool occult blood checked on 02/21/18 was negative. Urine cultures were negative on 02/21/18. MRI of the brain, impression: "Multilevel degenerative disk disease is noted with grade 1 spondylolisthesis of L4-L5 level with marked spinal stenosis due to spondylolisthesis and facet arthropathy. Degenerative disease of L1-L2, L2- L3, L3- L4, and L5-S1." Gallbladder ultrasound obtained at admission, impression: "Cholelithiasis without signs of acute inflammatory change or bowel obstruction." CONSULTATIONS DURING THE HOSPITAL STAY: Included BONNIE Huang, from Neurosurgery with Dr. Ortiz. HOSPITALIZATION COURSE: Yash Whitaker is an 82-year-old female, who presented to the hospital complaining of intractable back pain. She was seen in the emergency department on 02/17/[address] showed L2 compression fracture. She came into the hospital on 02/21/18 after she was unable to tolerate p.o. pain medications due to nausea and vomiting. Her back pain was exacerbated by that. She was placed on parenteral narcotics initially and MRI of the back was obtained, which showed significant spinal stenosis at the L4-L5 levels. Neurosurgery service saw the patient in consultation and recommended surgery. The patient currently is considering it. She underwent physical therapy evaluation and with pain management on Percocet, her pain has gotten more tolerable to the point she had been using 3 to 4 Percocet a day. She is ambulating with a walker. Physical therapy evaluation deemed the patient a good candidate for short-term rehabilitation. At this point, the patient plans to go to rehabilitation facility for a couple of weeks or so and once discharged from there, she is planning to follow up with Dr. Ortiz with further management of her spinal stenosis. The patient neurologically at discharge is basically intact, although she does have problems with right leg straight raise, due to sciatica-like pain that she experiences. Please note that the patient was noted to have vaginal prolapse and she had been complaining of that for the past 6 months, but she had not seen [facility] [employer] [facility]. We contacted the gynecology service, who recommended Premarin cream. The patient is to follow up with Dr. Miller as an outpatient for pessary fitting. PHYSICAL EXAMINATION: At the time of discharge, blood pressure of 132/44, heart rate of 76 and regular, respiratory rate 16, oxygen saturation 92% on room air, temperature 98.7. General: The patient is a very pleasant 82-year- old female, who is in no acute distress. Alert, awake, and oriented x3. HEENT : Head: Atraumatic, normocephalic. Eyes: Pupils are equal, reactive to light and accommodation. Oropharynx is clear. Mucosa moist. Neck: Supple. No JVD. No bruits bilaterally. Cardiovascular: Regular rate and rhythm. No murmur. Respiratory: Clear to auscultation bilaterally. Abdomen: Soft, nontender. Bowel sounds are present in all 4 quadrants. Extremities: There is no edema. Pulses are +2 bilaterally. No clubbing or cyanosis. Neuro Evaluation: Speech is clear. Cranial nerves II through XII are grossly intact. Motor strength is 5/5 bilaterally apart from mild decrease in strength in the right lower extremity on straight leg raise that may be due to sciatica pain that occurs when the patient performs the exercise. DISCHARGE FOLLOWUP: At discharge, the patient is recommended to follow up with a physician at [facility] where she is going for rehab. The patient is to follow up with Dr. Miller in approximately 1 to [address] Ortiz in approximately 1 to 2 weeks. Please note that this is a short summary of the patient's hospitalization. Please refer to further medical records for details. TIME SPENT: Approximately 45 minutes was spent on the patient's discharge. [id number]/[facility] #: [id number] OY[place]NA
== END 2018-02-26 14:00 | DRG 543 ==
LOC: ED 07:35 → MEDTELE 10:28 → MED 02-24 16:14
PROVIDERS: ADMIT Internal Medicine; ATTEND Internal Medicine
DX: M48.56XA Collapsed vertebra, not elsewhere classified, lumbar region, initial encounter for fracture (principal); M54.30 Sciatica, unspecified side; E87.1 Hypo-osmolality and hyponatremia; E89.0 Postprocedural hypothyroidism; I10 Essential (primary) hypertension; J45.909 Unspecified asthma, uncomplicated; M19.90 Unspecified osteoarthritis, unspecified site; E86.0 Dehydration; J44.9 Chronic obstructive pulmonary disease, unspecified; G89.29 Other chronic pain; M45.9 Ankylosing spondylitis of unspecified sites in spine; K59.00 Constipation, unspecified; R11.2 Nausea with vomiting, unspecified; N81.4 Uterovaginal prolapse, unspecified; K80.20 Calculus of gallbladder without cholecystitis without obstruction; M43.16 Spondylolisthesis, lumbar region; M48.061 Spinal stenosis, lumbar region without neurogenic claudication; M51.36 Other intervertebral disc degeneration, lumbar region; K29.70 Gastritis, unspecified, without bleeding; T39.395A Adverse effect of other nonsteroidal anti-inflammatory drugs [NSAID], initial encounter; T40.4X5A Adverse effect of other synthetic narcotics, initial encounter; Y92.009 Unspecified place in unspecified non-institutional (private) residence as the place of occurrence of the external cause; Z88.0 Allergy status to penicillin; Z82.49 Family history of ischemic heart disease and other diseases of the circulatory system; Z98.42 Cataract extraction status, left eye; Z98.41 Cataract extraction status, right eye
CPT/HCPCS: 36415; 71045; 72148; 74018; 76705; 80048; 80053; 81003; 81015; 82272; 83690; 85025; 85610; 85730; 87086; 93005; 94640; 99284; A9270-GY; G8978-GP-CJ; G8979-GP-CI; G8987-GO-CK; G8988-GO-CI; J1644; J2270

== ENCOUNTER 2018-03-17 13:52 | Emergency (ER) | payer MEDICARE ==
[2018-03-17] MEDS ORDERED: Ondansetron ODT TAB* 4 MG PO ONE (14:03)
[2018-03-17] MEDS ORDERED: NS 0.9% 1000 ML* 1,000 ML IV ONE (14:03)
--- NOTE | 2018-03-17 14:03 | ED ---
GI/ HPI - HPI Summary HPI Summary: This is scribe Bibi Linda documenting for attending Justice Medrano MD. Pt is an 82 y/o female BIBA who presents to the ED c/o constipation. She states she has not produced a BM in 6 days, and started to have nausea this morning. Pt describes the abdominal pain as 7/10 in severity. She is currently on antibiotics for a UTI. Pt denies any PMHx of abdominal surgery or constipation. She has a prolapsed bladder. - History of Current Complaint Time Seen by Provider: 03/17/18 13:56 Stated Complaint: NAUSEA & CONSTIPATION Hx Obtained From: Patient Onset/Duration: Started Days Ago - 6, Worse Since Timing: Constant Severity: Moderate - 7/10 Associated Signs and Symptoms: Positive: Nausea, Constipation, Abdominal Pain. Negative: Vomiting Aggravating Factor(s): Nothing Alleviating Factor(s): Nothing - Additional Pertinent History Primary Care Physician: WOLF - Allergy/Home Medications Allergies/Adverse Reactions: Allergies Allergy/AdvReac Type Severity Reaction Status Date / Time amoxicillin Allergy Rash Verified 03/17/18 14:06 Home Medications: Home Medications Docusate CAP* [Colace Cap*] 100 mg PO DAILY 03/17/18 [History Confirmed 03/17/18 ] Fluticasone HFA 110 mcg(NF) [Flovent HFA 110 mcg(NF)] 2 puff PO BID 03/17/18 [ History Confirmed 03/17/18] Gabapentin CAP(*) [Neurontin 100 mg CAP(*)] 1 cap PO BEDTIME 03/17/18 [History Confirmed 03/17/18] Sulfamethox/Trimethoprim DS* [Bactrim DS 800/160 TAB*] 1 tab PO BID 03/17/18 [ History Confirmed 03/17/18] PMH/Surg Hx/FS Hx/Imm Hx Endocrine/Hematology History: Reports: Hx Thyroid Disease - On meds, partial thyroidectomy Cardiovascular History: Reports: Hx Hypertension, Other Cardiovascular Problems/ Disorders - 1st degree AV block Denies: Hx Cardiac Arrest, Hx Coronary Artery Disease, Hx Hypercholesterolemia, Hx Pacemaker/ICD Respiratory History: Reports: Hx Asthma - On meds, Hx Chronic Obstructive Pulmonary Disease (COPD) Denies: Hx Lung Cancer GI History: Reports: Other GI Disorders - inguinal hernia, cholelithiasis per CT Musculoskeletal History: Reports: Hx Arthritis, Other Musculoskeletal History - L2 comp fx Sensory History: Reports: Hx Contacts or Glasses Denies: Hx Hearing Aid Opthamlomology History: Reports: Hx Contacts or Glasses Neurological History: Denies: Hx Dementia, Hx Headaches, Hx Migraine, Hx Seizures, Hx Spinal Cord Injury, Hx Transient Ischemic Attacks (TIA) Psychiatric History: Denies: Hx Panic Disorder - Surgical History Surgery Procedure, Year, and Place: PARTIAL THYROIDECTOMY; inguinal hernia, cataracts Infectious Disease History: Denies: History Other Infectious Disease - Family History Known Family History: Positive: Cardiac Disease - CHF, Other - [place] - Social History Alcohol Use: None Hx Substance Use: No Substance Use Type: Reports: None Hx Tobacco Use: No Smoking Status (MU): Never Smoked Tobacco Review of Systems Negative: Fever Positive: Abdominal Pain, Nausea, Other - Constipation All Other Systems Reviewed And Are Negative: Yes Physical Exam - Summary Physical Exam Summary: VITAL SIGNS: Reviewed. GENERAL: Patient is an elderly FEMALE who is lying comfortable in the stretcher. Patient is not in any acute respiratory distress. HEAD AND FACE: No signs of trauma. No ecchymosis, hematomas or skull depressions. No sinus tenderness. EYES: PERRLA, EOMI x 2, No injected conjunctiva, no nystagmus. EARS: Hearing grossly intact. Ear canals and tympanic membranes are within normal limits. MOUTH: Oropharynx within normal limits. NECK: Supple, trachea is midline, no adenopathy, no JVD, no carotid bruit, no c- spine tenderness, neck with full ROM. CHEST: Symmetric, no tenderness at palpation LUNGS: Clear to auscultation bilaterally. No wheezing or crackles. CVS: Regular rate and rhythm, S1 and S2 present, no murmurs or gallops appreciated. ABDOMEN: Soft, non-tender. No signs of distention. No rebound no guarding, and no masses palpated. Bowel sounds are decreased. EXTREMITIES: FROM in all major joints, no edema, no cyanosis or clubbing. NEURO: Alert and oriented x 3. No acute neurological deficits. Speech is normal and follows commands. SKIN: Dry and warm RECTAL: Multiple external hemorrhoids. No blood. Normal sphincter tone. Triage Information Reviewed: Yes Vital Signs Reviewed: Yes Diagnostics - Laboratory Result Diagrams: 03/17/18 14:28 03/17/18 14:28 Lab Statement: Any lab studies that have been ordered have been reviewed, and results considered in the medical decision making process. - Radiology Abd XR Xray Interpretation: Positive (See Comments) - 14:03 Large volume of retained stool in the colon. No evidence for bowel obstruction. ED physician reviewed radiology report. Radiology Interpretation Completed By: Radiologist - EKG 14:19 Cardiac Rate: NL - 86 bpm EKG Rhythm: Sinus Rhythm ST Segment: Normal GIGU Course/Dx - Course Assessment/Plan: This patient is an 82-year-old female who presents to the emergency department with a chief complaint of having constipation. She reports that she has not been able to have a bowel movement for the last 6 days. Patient also is having diffuse abdominal pain nausea and vomiting. This results without any significant abnormality, urinalysis is negative for UTI, abdomen x-ray impression: Large volume of retained stool in the colon. No evidence for bowel obstruction. In the ED course I performed a rectal exam however I was not able to reach any stool, and the bottle is empty. Therefore the patient was given IV fluids, MiraLAX, magnesium citrate, lactulose and a Fleet enema and the patient was successfully had and small bowel movement. Therefore, I discussed my physical exam, findings and test results with the patient and the need to continue taking medications for constipation for the next couple days onto she has a complete bowel movement. The patient is feeling better, she understands and agrees and I will give a couple prescriptions for nausea vomiting and constipation. At this point the patient is hemodynamically stable alert and oriented 3. - Diagnoses Provider Diagnoses: Constipation Discharge - Sign-Out/Discharge Documenting (check all that apply): Patient Departure - Discharge - Discharge Plan Condition: Stable Disposition: HOME Prescriptions: Magnesium CITRATE* [Citrate of Magnesia*] 300 ml PO ONCE #1 btl Ondansetron TAB* [Zofran 4 MG Tab*] 4 mg PO Q6H PRN #10 tab PRN Reason: Vomiting Sodium Phosphate ADULT ENEMA* [Fleet Enema*] 1 bottle .SEE ORDER ONCE #3 btl Referrals: Bailee Ayers MD [Primary Care Provider] - - Billing Disposition and Condition Condition: STABLE Disposition: Home
[2018-03-17 14:27] LABS: Urine Appearance Clear; Urine Blood 3+ (Negative); Urine Color Yellow; Urine Ketones Negative (Negative); Urine Protein Negative (Negative); Urine Red Blood Cell 3+(>10/hpf) (Absent); Urine Specific Gravity 1.004 (1.010-1.030); Urine Urobilinogen Negative (Negative); Urine White Blood Cell 3+(>20/hpf) (Absent)
[2018-03-17 14:46] LABS: ABS Basophils 0 10^3/ul (0-0.2); ABS Eosinophils 0.3 10^3/ul (0-0.6); ABS Lymphocytes 1.6 10^3/ul (1.0-4.8); ABS Monocytes 0.8 10^3/ul (0-0.8); ABS Neutrophils 7.5 10^3/ul (1.5-7.7); ABS Nucleated RBC 0 10^3/ul; Eosinophil % 2.5 % (0-6); Hematocrit 40 % (35-47); Hemoglobin 13.5 g/dl (12.0-16.0); Lymphocyte % 15.9 % (25-47); Mean Corpuscular HGB Conc 34 g/dl (31-36); Mean Corpuscular Hemoglobin 30 pg (27-31); Mean Corpuscular Volume 89 fL (80-97); Mean Platelet Volume 7.5 um3 (7.4-10.4); Nucleated Red Blood Cells % 0; Platelet Count 466 10^3/ul (150-450); Red Blood Count 4.51 10^6/ul (4.00-5.40); Red Cell Distribution Width 14 % (10.5-15); White Blood Count 10.2 10^3/ul (3.5-10.8)
[2018-03-17 14:55] LABS: EGFR Non-African American 48.6 (>60)
[2018-03-17] MEDS ORDERED: Magnesium CITRATE* 300 ML BTL PO ONE (15:31)
[2018-03-17] MEDS ORDERED: Polyethylene Glycol 3350* 17 GM PACKET PO PRN (15:31)
[2018-03-17] MEDS ORDERED: Sodium Phosphate ADULT ENEMA* 118 ml bottle PR ONE (15:31)
--- NOTE | 2018-03-17 15:47 | RAD ---
Indication: Nausea, vomiting. Constipation. Previous inguinal hernia repair. Cholelithiasis. Comparison: February 21, 2018 Technique: Supine and upright views of the abdomen. Report: Negative for free air beneath the diaphragm. Large volume of stool in the colon with distention of the sigmoid colon and rectum with stool. Negative for dilated bowel loops to indicate bowel obstruction. Pelvic phleboliths. No suspicious calcifications or mass effect. Grossly clear lung bases. IMPRESSION: #. Large volume of retained stool in the colon. No evidence for bowel obstruction.
[2018-03-17 15:59] VITALS: BP 144/105
--- NOTE | 2018-03-19 16:33 | ED ---
Progress - Progress Note Progress Note: Patient's preliminary urine culture reveals 1-10,000 Staphylococcus aureus. She was diagnosed with constipation. Final results pending. Course/Dx - Diagnoses Provider Diagnoses: Constipation Discharge - Sign-Out/Discharge Documenting (check all that apply): Post-Discharge Follow Up - Discharge Plan Condition: Critical Disposition: HOME Prescriptions: Magnesium CITRATE* [Citrate of Magnesia*] 300 ml PO ONCE #1 btl Ondansetron TAB* [Zofran 4 MG Tab*] 4 mg PO Q6H PRN #10 tab PRN Reason: Vomiting Sodium Phosphate ADULT ENEMA* [Fleet Enema*] 1 bottle .SEE ORDER ONCE #3 btl Patient Education Materials: Constipation (ED) Referrals: Bailee Ayers MD [Primary Care Provider] - 3 Days Additional Instructions: RETURN TO THE ED FOR ANY WORSENING OR NEW SYMPTOMS. - Billing Disposition and Condition Condition: CRITICAL Disposition: Home
--- NOTE | 2018-03-20 06:47 | PN ---
Progress Note - Progress Note Date of Service: 03/17/18 Note: Final urine culture growing 1-10K staph. aureus. Pt. already being treated with Bactrim which is susceptible. No change in treatment needed at this time.
== END 2018-03-17 17:13 | disposition home or self-care (01) ==
LOC: ED 13:52
DX: K59.00 Constipation, unspecified (principal); R11.0 Nausea; E07.9 Disorder of thyroid, unspecified; J45.909 Unspecified asthma, uncomplicated; Z88.0 Allergy status to penicillin; Z82.49 Family history of ischemic heart disease and other diseases of the circulatory system; Z80.9 Family history of malignant neoplasm, unspecified
CPT/HCPCS: 36415; 74019; 80053; 81003; 81015; 82272; 83605; 83690; 85025; 86140; 87077; 87086; 87186; 93005; 96360; 96361; 99283; A9270-GY

== ENCOUNTER 2018-03-20 08:40 | Observation (INO) | payer MEDICARE ==
--- NOTE | 2018-03-20 09:30 | ED ---
GI/ HPI - HPI Summary HPI Summary: This is [facility] documenting for attending Bassem Brenner This is [facility] documenting for attending Bassem Valdivia MD. Pt KAYDEN is a 82 y/o F c/ o constant abd pressure. Pressure onset a couple days ago. Assoc Sx: N/V, abd pressure, fever (101), weakness, increased urinary frequency, dysuria. Denies: CP, back pressure, diarrhea, dizziness, lightheadedness. Nothing alleviates the Sx. Notes she started ABX to treat a possible UTI 2 days ago. She denies taking Tylenol/motrin today. She says that she feels as if she can pass out last night and this AM. PSHx: Denies cholecystectomy. - History of Current Complaint Chief Complaint: EDNauseaVomitDiarrh Stated Complaint: GENERAL ILLNESS Hx Obtained From: Patient Onset/Duration: Started Days Ago Timing: Constant Current Severity: Moderate Pain Intensity: 6 Location of Pain: Epigastric Pain Characteristics: Pressure Associated Signs and Symptoms: Positive: Weakness, Vomiting, Diarrhea, Dysuria - 1 episode, Abdominal Pain - pressure. Negative: Back Pain, Dizziness, Lightheadedness - Additional Pertinent History Primary Care Physician: WOLF - Allergy/Home Medications Allergies/Adverse Reactions: Allergies Allergy/AdvReac Type Severity Reaction Status Date / Time amoxicillin Allergy Rash Verified 03/20/18 08:57 Home Medications: Home Medications Albuterol HFA INHALER* [Ventolin HFA Inhaler*] 1 - 2 puff INH Q6H 03/20/18 [ History Confirmed 03/20/18] amLODIPine TAB* [Norvasc 5 mg TAB*] 10 mg PO DAILY 03/20/18 [History Confirmed 03/20/18] PMH/Surg Hx/FS Hx/Imm Hx Endocrine/Hematology History: Reports: Hx Thyroid Disease - On meds, partial thyroidectomy Cardiovascular History: Reports: Hx Hypertension, Other Cardiovascular Problems/ Disorders - 1st degree AV block Denies: Hx Cardiac Arrest, Hx Coronary Artery Disease, Hx Hypercholesterolemia, Hx Pacemaker/ICD Respiratory History: Reports: Hx Asthma - On meds, Hx Chronic Obstructive Pulmonary Disease (COPD) Denies: Hx Lung Cancer GI History: Reports: Other GI Disorders - inguinal hernia, cholelithiasis per CT Musculoskeletal History: Reports: Hx Arthritis, Other Musculoskeletal History - L2 comp fx Sensory History: Reports: Hx Contacts or Glasses Denies: Hx Hearing Aid Opthamlomology History: Reports: Hx Contacts or Glasses Neurological History: Denies: Hx Dementia, Hx Headaches, Hx Migraine, Hx Seizures, Hx Spinal Cord Injury, Hx Transient Ischemic Attacks (TIA) Psychiatric History: Denies: Hx Panic Disorder - Surgical History Surgery Procedure, Year, and Place: PARTIAL THYROIDECTOMY; inguinal hernia, cataracts Infectious Disease History: No Infectious Disease History: Denies: History Other Infectious Disease, Traveled Outside the [place] in Last 30 Days - Family History Known Family History: Positive: Cardiac Disease - CHF, Other - [place] - Social History Occupation: Retired Lives: With Family Alcohol Use: None Hx Substance Use: No Substance Use Type: Reports: None Hx Tobacco Use: No Smoking Status (MU): Never Smoked Tobacco Review of Systems Positive: Fever - 101 Negative: Chest Pain Positive: Abdominal Pain, Vomiting, Diarrhea, Nausea Positive: dysuria, frequency - increased Neurological: Negative - Dizziness, lightheadedness. Positive: Weakness All Other Systems Reviewed And Are Negative: Yes Physical Exam - Summary Physical Exam Summary: Constitutional: Well-developed, Well-nourished, Alert. (-) Distressed Skin: Warm, Dry HENT: Normocephalic; Atraumatic Eyes: Conjunctiva normal Neck: Musculoskeletal ROM normal neck. (-) JVD, (-) Stridor, (-) Tracheal deviation Cardio: Rhythm regular, rate normal, Heart sounds normal; Intact distal pulses; The pedal pulses are 2+ and symmetric. Radial pulses are 2+ and symmetric. (-) Murmur Pulmonary/Chest wall: Effort normal. (-) Respiratory distress, (-) Wheezes, (-) Rales Abd: Soft, (-), epigastric tenderness, (-) Distension, (-) Guarding, (-) Rebound Musculoskeletal: (-) Edema Lymph: (-) Cervical adenopathy Neuro: Alert, Oriented x3 Psych: Mood and affect Normal Triage Information Reviewed: Yes Vital Signs On Initial Exam: Initial Vitals Temp Pulse Resp BP Pulse Ox 100.1 F 74 16 119/74 95 03/20/18 08:59 03/20/18 08:59 03/20/18 08:59 03/20/18 08:59 03/20/18 08:59 Vital Signs Reviewed: Yes Diagnostics - Vital Signs Vital Signs Temp Pulse Resp BP Pulse Ox 03/20/18 08:59 100.1 F 74 16 119/74 95 - Laboratory Result Diagrams: 03/20/18 09:19 03/20/18 09:19 Lab Statement: Any lab studies that have been ordered have been reviewed, and results considered in the medical decision making process. - CT A/P CT CT Interpretation: Positive (See Comments) - IMPRESSION: 1. THICKENING OF THE WALL OF THE SIGMOID COLON SUGGESTIVE OF MILD COLITIS. 2. NEW MODERATE GRADE LEFT HYDRONEPHROSIS POSSIBLY SECONDARY TO COMPRESSION OF THE URETER FROM THE LARGE CYSTOCELE ALTHOUGH OTHER ETIOLOGIES CANNOT BE EXCLUDED. RECOMMEND UROLOGIC CONSULTATION. 3. 5 MM RIGHT LOWER LOBE PULMONARY NODULE SLIGHTLY MORE PROMINENT THAN ON THE STUDY FROM AUGUST [address] OF THE CHEST WITHOUT CONTRAST FOR FURTHER EVALUATION. 4. CHOLELITHIASIS, UNCHANGED. 5. LEFT RENAL ANGIOMYOLIPOMA, UNCHANGED. 6. 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 CT Interpretation Completed By: Radiologist - Provider has reviewed report. - EKG 0939 Cardiac Rate: Tachycardia - 116 bpm EKG Rhythm: Sinus Rhythm ST Segment: Normal 0934 Cardiac Rate: NL, Other Rate - pacemaker spikes or artifacts. EKG Rhythm: Sinus Rhythm ST Segment: Normal GIGU Course/Dx - Diagnoses Provider Diagnoses: N&V (nausea and vomiting) Discharge - Sign-Out/Discharge Documenting (check all that apply): Patient Departure - Discharge Plan Condition: Stable Disposition: ADMITTED TO [facility] - Billing Disposition and Condition Condition: STABLE Disposition: Admitted to [facility]
[2018-03-20 09:34] LABS: ABS Basophils 0.1 10^3/ul (0-0.2); ABS Eosinophils 0.2 10^3/ul (0-0.6); ABS Lymphocytes 0.9 10^3/ul (1.0-4.8); ABS Monocytes 0.5 10^3/ul (0-0.8); ABS Neutrophils 3.1 10^3/ul (1.5-7.7); ABS Nucleated RBC 0 10^3/ul; Eosinophil % 3.4 % (0-6); Hematocrit 37 % (35-47); Hemoglobin 12.2 g/dl (12.0-16.0); Lymphocyte % 19.6 % (25-47); Mean Corpuscular HGB Conc 33 g/dl (31-36); Mean Corpuscular Hemoglobin 30 pg (27-31); Mean Corpuscular Volume 89 fL (80-97); Mean Platelet Volume 7.4 um3 (7.4-10.4); Nucleated Red Blood Cells % 0.1; Platelet Count 414 10^3/ul (150-450); Red Blood Count 4.14 10^6/ul (4.00-5.40); Red Cell Distribution Width 14 % (10.5-15); White Blood Count 4.7 10^3/ul (3.5-10.8)
[2018-03-20 09:42] LABS: INR 1.07 (0.77-1.02)
[2018-03-20 09:53] LABS: EGFR Non-African American 50.7 (>60)
[2018-03-20 10:46] LABS: Urine Appearance Clear; Urine Blood Negative (Negative); Urine Color Yellow; Urine Ketones 1+ (Negative); Urine Protein Negative (Negative); Urine Red Blood Cell 1+(3-5/hpf) (Absent); Urine Specific Gravity 1.012 (1.010-1.030); Urine Urobilinogen Negative (Negative); Urine White Blood Cell Trace(0-5/hpf) (Absent)
[2018-03-20] MEDS ORDERED: NS 0.9% 1000 ML* 1,000 ML IV ONE (11:26)
[2018-03-20] MEDS ORDERED: Ondansetron ODT TAB* 4 MG PO ONE (11:26)
[2018-03-20] MEDS ORDERED: Nitrofurantoin Macrocrystals* 100 MG CAP PO ONE (11:30)
[2018-03-20] MEDS ORDERED: Iodixanol* (CONTRAST) 320 MG/ML 100 ML SDV IV ONE (14:47)
[2018-03-20] MEDS ORDERED: Polyethylene Glycol 3350* 17 GM PACKET PO PRN (15:18)
[2018-03-20] MEDS ORDERED: oxyCODONE/Acetamin 5/325 MG* TAB PO PRN (15:18)
[2018-03-20] MEDS ORDERED: PROCHLORPERAZINE INJ 5 MG/ML 2 ML VIAL IV PRN (15:20)
[2018-03-20] MEDS ORDERED: Acetaminophen TAB* 325 MG PO PRN (15:20)
--- NOTE | 2018-03-20 15:25 | RAD ---
INDICATION: Nausea, poor appetite. COMPARISON: Comparison is made with a prior CT of the abdomen and pelvis from February 17, 2018. Correlation is also made with a CT angiogram of the chest from September 15, 2016. TECHNIQUE: A CT scan of the abdomen and pelvis was performed with intravenous and with oral contrast following intravenous injection of 91 ml of Visipaque 320 nonionic contrast. Contiguous axial sections were obtained from the lung bases through the symphysis pubis. Images were reconstructed in the coronal and sagittal planes. FINDINGS: There is a 5 mm nodular density present in the right lower lobe which appears slightly more prominent than on the study from August 2016. No pleural effusion is present. The liver and spleen are normal in size without significant focal abnormality. Note is made of gallstones. No pericholecystic fluid is seen. There appears be minimal gallbladder wall thickening which is unchanged. The adrenal glands appear to be within normal limits. The kidneys are slightly small in size there are lateral cysts. In addition there is a fatty soft tissue density tumor in the inferior pole of the left kidney which appears unchanged most consistent with an angiomyolipoma. This measures up to 2.6 cm in diameter. There is new moderate grade left hydronephrosis. The left ureter is dilated to the level of the urinary bladder. There is a prominent cystocele present. No calculus is seen. The aorta is normal in caliber and demonstrates homogeneous contrast opacification. No significant enlarged retroperitoneal lymph nodes are seen. The stomach, small and large bowel appear nondistended. The appendix is not well-defined. There is moderate sigmoid diverticulosis and mild thickening of the wall of the sigmoid colon suggestive of colitis. No free intraperitoneal air or fluid is seen. There is a chronic compression fracture of the superior endplate of the L3 vertebral body which appears unchanged. IMPRESSION: 1. THICKENING OF THE WALL OF THE SIGMOID COLON SUGGESTIVE OF MILD COLITIS. 2. NEW MODERATE GRADE LEFT HYDRONEPHROSIS POSSIBLY SECONDARY TO COMPRESSION OF THE URETER FROM THE LARGE CYSTOCELE ALTHOUGH OTHER ETIOLOGIES CANNOT BE EXCLUDED. RECOMMEND UROLOGIC CONSULTATION. 3. 5 MM RIGHT LOWER LOBE PULMONARY NODULE SLIGHTLY MORE PROMINENT THAN ON THE STUDY FROM AUGUST [address] OF THE CHEST WITHOUT CONTRAST FOR FURTHER EVALUATION. 4. CHOLELITHIASIS, UNCHANGED. 5. LEFT RENAL ANGIOMYOLIPOMA, UNCHANGED. 6. 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
[2018-03-20] MEDS: NS 0.9% 1000 ML* 1,000 ML IV SCH (17:34)
--- NOTE | 2018-03-20 18:45 | HP ---
CC: Dr. Ayers; Dr. Castellon * HISTORY AND PHYSICAL: DATE OF ADMISSION: 03/20/18 TIME OF EVALUATION: 3 p.m. PRIMARY CARE PROVIDER: Dr. Ayers. CONSULTING UROLOGIST: Dr. Castellon. CHIEF COMPLAINT: Nausea and vomiting. HISTORY OF PRESENT ILLNESS: Mrs. Whitaker is an 82-year-old lady with a past medical history of hypertension, hypothyroidism, COPD, L2 compression fracture, who presented to the emergency room with complaints of nausea and vomiting. The patient was recently admitted to [facility] from 02/21/18 to 02/26/18 with complaints of back pain secondary to L2 compression fracture and lumbar spine stenosis. She was seen by Neurosurgery and was offered options of conservative management with physical therapy or surgical treatment. The patient elected physical therapy, went to rehab at [facility] and states that she has been feeling well. Last week, she was diagnosed with a urinary tract infection and was started on Bactrim. Last Monday, she went out with her granddaughter and had a cheeseburger and fries for lunch and since then, she started to have nausea and vomiting associated with right upper quadrant discomfort. She was seen in the emergency room on 03/17/18 and she was felt to be constipated. She took laxatives at home, had a bowel movement, and the abdominal discomfort improved, but the nausea and vomiting persisted reason why she came to the emergency room again. She describes feeling "lousy." There is no dysuria or any other urinary complaints. The patient also has a vaginal prolapse and on the prior admission, Gynecology was contacted and recommendation was for Premarin cream and to be seen as outpatient for pessary fitting, but the patient has not had a chance to do that yet. She denies fever, chills, diarrhea, cough, shortness of breath, or any other complaints. PAST MEDICAL HISTORY: 1. Hypertension. 2. Hypothyroidism. 3. COPD. 4. L2 compression fracture and lumbar spine stenosis with recent admission for intractable pain. 5. Vaginal prolapse. MEDICATION LIST: 1. Albuterol HFA 1 to 2 puffs inhaled q.6 hours. 2. Amlodipine 10 mg p.o. daily. 3. Colace 100 mg p.o. daily. 4. Flovent HFA 110 mcg 2 puffs inhaled b.i.d. 5. Gabapentin 100 mg p.o. at bedtime. 6. Levothyroxine 88 mcg p.o. daily. 7. Percocet 5/325 mg 1 tablet p.o. q.4 hours p.r.n. pain, MDD 6. 8. MiraLAX 17 g p.o. daily as needed for constipation. 9. Bactrim DS 1 tablet p.o. b.i.d. 10. Valsartan 320 mg p.o. daily. ALLERGIES: With AMOXICILLIN, the patient had a rash. FAMILY HISTORY: Reviewed and noncontributory. 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 No history of tobacco, alcohol, drug use. Surrogate decision maker is her son, Ryan Whitaker, phone number is [phone]. REVIEW OF SYSTEMS: A 14-point review of systems was performed and all the pertinent negative and positive findings are in the HPI. PHYSICAL EXAMINATION GENERAL: The patient is a pleasant elderly lady, lying in ED stretcher, in no acute distress. VITAL SIGNS: Temperature 98.9, heart rate is 76, respiratory rate is 22, oxygen saturation 95% on room air, blood pressure is 142/77. HEENT: Pupils are equal. Moist mucous membranes. CHEST: Breath sounds present bilaterally with no added sounds. CVS: Normal S1, S2. Regular rate and rhythm. ABDOMEN: Soft. There is mild right upper quadrant discomfort, but no guarding , no rebound. Ramos sign is negative. Abdomen is soft. Bowel sounds are present. There is no CVA tenderness. EXTREMITIES: No edema. NEUROLOGIC: She is alert, oriented x3. Able to move all 4 extremities. LABORATORY AND IMAGING DATA: The patient had a CBC that showed a WBC of 4.7, hemoglobin of 12.2, hematocrit of 37, and platelets of 414 with 64% neutrophils. INR is 1.07. APTT 37.3. Chemistry showed a sodium of 135, potassium of 4.3, chloride of 102, bicarb of 24, BUN of 7, creatinine of 1.04, glucose of 102. Lactic acid 0.9. Calcium of 9. LFTs were normal with minimal elevation of alk phos at 198. CRP was 14.12. Urinalysis showed trace LE, trace wbc's, and nitrites were negative. EKG done on 03/20/18 at 9:34 a.m. showed normal sinus rhythm at 67 beats per minute with no ST-T changes with no significant change when compared to her prior one from 03/17/18. CT of the abdomen and pelvis without contrast showed thickening of the wall of the sigmoid colon suggestive of mild colitis. New moderate grade left hydronephrosis, possibly secondary to compression of the ureter from the large cystocele, although other etiologies cannot be excluded. A 5 mm right lower lobe pulmonary nodule, slightly more prominent than on the study from August 2016, cholelithiasis, left renal angiomyolipoma, and chronic compression fracture of the L3 vertebral body unchanged. ASSESSMENT AND PLAN: Mrs. Whitaker is an 82-year-old lady with a past medical history of hypertension, hypothyroidism, chronic obstructive pulmonary disease, L2 compression fracture, lumbar spine stenosis who presented to the emergency room with complaints of nausea and vomiting. 1. Nausea and vomiting. I believe this is related to her gallbladder. The patient states that she had similar episodes in the past and this time, it started after eating a cheeseburger and English fries. CT showed gallstones and there appears to be minimal gallbladder wall thickening, which is unchanged from her prior CT from August 2016. She does not appear to have acute cholecystitis at this time, but the timing of her symptoms does suggest a biliary etiology. The thickening of the sigmoid colon is very mild and the patient has no other symptoms including diarrhea or fever to suggest that this is the cause of her symptoms. She was diagnosed with a urinary tract infection as outpatient, but the urine culture grew only Staphylococcus aureus, 1 to 10,000 colonies and this was sensitive to Bactrim, so even if she did have a urinary tract infection, this was already treated with Bactrim. I discussed her CAT scan result with Dr. Castellon and he thinks this is very unlikely that the cystocele would be the cause of her hydronephrosis. As we do not think the patient is infected at this point , antibiotics are not indicated. She will receive IV hydration and plan is to repeat an ultrasound of kidneys and bladder in the morning to check for ureteral jets. Dr. Castellon will see her in consultation. The bladder scan with postvoid residual was requested and if greater than 150 mL , we will place a Tejada catheter, but if less than that, we would just wait to repeat her ultrasound in the morning. At the time of my interview, the patient was asymptomatic stating that her nausea was much improved after she received sublingual ondansetron. The plan at this point is to admit her for IV hydration, symptomatic treatment of nausea if it recurs. No antibiotics at this point. Repeat her ultrasound tomorrow to decide what to do next with her hydronephrosis. If she continues to have symptomatic improvement, I believe she can see General Surgery as outpatient to discuss further management of her cholelithiasis. 2. Hypertension. It is controlled. We are going to continue amlodipine and valsartan. 3. Hypothyroidism. We will continue levothyroxine. 4. L3 compression fracture/lumbar spine stenosis. We will continue pain management with Percocet and gabapentin. 5. Asthma/chronic obstructive pulmonary disease. Stable. We will continue albuterol and fluticasone. 6. DVT prophylaxis. The patient has a score of 3 on the DVT Prophylaxis Assessment Guide and she will be started on subcutaneous heparin. 7. Code status is full. TIME SPENT: Approximately 50 minutes were spent with the patient interview, medical records review, physical examination to complete this admission, more than half of this time was spent [id number] with the patient and coordination of care. [id number]/[facility] #: [id number] MTDD
[2018-03-20] MEDS: Mometasone 220 MCG MDI INH SCH (19:49)
[2018-03-20] MEDS: Albuterol HFA INHALER* 8 gm MDI INH SCH ×2 (19:52→20:29)
[2018-03-20] MEDS: Heparin VIAL(*) 5000 UNITS/ML VIAL (FIVE THOUSAND) SUBCUT SCH (21:16)
[2018-03-20] MEDS: Gabapentin CAP(*) 100 MG PO SCH (21:16)
--- NOTE | 2018-03-20 21:45 | CONS ---
CC: Dr. Lillie Kam; Dr. Ayers; Von Castellon MD * UROLOGY CONSULTATION REPORT: DATE OF CONSULTATION: 03/20/18. REQUESTING PHYSICIAN: Dr. Lillie Kam. DIAGNOSIS: Left hydronephrosis. HISTORY OF PRESENT ILLNESS: Yash Whitaker is an 82-year-old lady who presented to the emergency room with constant abdominal pressure, nausea, and vomiting. She states that she had been treated by her primary care doctor for a presumed urinary tract infection (I do not have the report of the culture available at the time of this dictation), and had been placed on Bactrim, but presented to the ER because of general overall worsening symptoms including abdominal pain, nausea, vomiting, and feeling rundown. PAST MEDICAL HISTORY: Significant for: 1. Thyroid disorder (status post partial thyroidectomy). 2. Hypertension. 3. First-degree AV block. 4. COPD. 5. Arthritis. PAST SURGICAL HISTORY: Significant for: 1. Partial thyroidectomy. 2. Inguinal hernia surgery. 3. Cataract surgery. MEDICATIONS: On admission include: 1. Albuterol inhaler 2 puffs q.6 hours. 2. Amlodipine 10 mg daily. ALLERGIES: AMOXICILLIN (rash, hives). SMOKING HISTORY: She is a nonsmoker. REVIEW OF SYSTEMS: She is otherwise in excellent health. There is no history of diabetes mellitus or any other major systemic illness. PHYSICAL EXAMINATION: She is a pleasant healthy-appearing elderly lady, who is alert and oriented. Temperature is 100.1, blood pressure 119/74, pulse 74 per minute, respirations 16, oxygen saturation is 95% on room air. Cardiovascular Exam: Regular rate and rhythm. S1, S2. Lungs are clear bilaterally. Abdomen is soft. There is no discrete flank tenderness. LABORATORY DATA: I reviewed the labs and the imaging studies. Her white count is normal at 4.7, hemoglobin and hematocrit are normal at 12.2 and 37 with a platelet count of 414. BUN and creatinine are 7 and 1.04. IMAGING: I reviewed the CT scan, which revealed moderate left hydronephrosis. She was also noted on the CT scan to have cystocele, although it would be unusual for a cystocele to cause unilateral hydronephrosis. In addition, there is some additional findings on CT scan including left renal angiomyolipoma, chronic compression fracture of L3 vertebral body, and thickening of the wall of the sigmoid colon suggestive of mild colitis and also cholelithiasis. In reviewing the urine culture, which was done on 03/17/18, this revealed 1 to 10,000 colony forming units of Staph aureus, which was Blanco sensitive (had been treated with Bactrim). IMPRESSION AND PLAN: I had a detailed discussion with the patient and her family regarding the new onset of left hydronephrosis. I also recommended that we check her postvoid residual to see if the cystocele was interfering with her bladder emptying and her postvoid residual is minimal at 11 cc. My recommendation is that we get a followup imaging study preferably ultrasound of the kidney and bladder to assess the hydronephrosis and to assess the presence or absence of ureteral jet of the left side. Depending on the findings of the repeat imaging study, if there is persistent hydronephrosis and especially if there is absent or significantly reduced left ureteral jet then the next step would be to consider a left retrograde pyelogram , left ureteroscopy, and stent insertion. [id number]/[facility] #: [id number] YOHANA
[2018-03-21] MEDS: Levothyroxine TAB* 88 MCG TAB PO SCH ×2 (05:49→05:50)
[2018-03-21] MEDS: Heparin VIAL(*) 5000 UNITS/ML VIAL (FIVE THOUSAND) SUBCUT SCH ×3 (05:49→20:52)
[2018-03-21] MEDS: Albuterol HFA INHALER* 8 gm MDI INH SCH ×3 (06:11→15:25)
[2018-03-21] MEDS: amLODIPine TAB* 5 MG PO SCH (09:40)
[2018-03-21] MEDS: Valsartan TAB* 160 MG PO SCH (09:40)
[2018-03-21] MEDS: NS 0.9% 1000 ML* 1,000 ML IV SCH (09:41)
[2018-03-21] MEDS: Docusate CAP* 100 MG PO SCH (09:41)
--- NOTE | 2018-03-21 10:05 | RAD ---
HISTORY: Left hydro, check for ureteral jets and PVR COMPARISONS: CT dated March 20, 2018 TECHNIQUE: Multiple transverse and longitudinal ultrasound images were obtained of the kidneys and bladder using grayscale and color Doppler imaging. FINDINGS: RIGHT KIDNEY: There is a 2 cm simple cyst of the upper pole of the right kidney. There is no hydronephrosis or nephrolithiasis. The right kidney measures 10.5 x 4.2 x 4.8 cm. LEFT KIDNEY: There is a complex echogenic mass of the lower pole of the left kidney measuring 3.1 x 3.1 x 2.7 cm in size. This corresponds to the left renal angiomyolipoma described on the previous CT examination. There is no hydronephrosis or nephrolithiasis. The left kidney measures 11.5 x 5.2 x 4.7 cm. BLADDER: The bladder is smooth in contour. Bilateral ureteral jets are identified. The prevoid bladder volume is 206 milliliters.. The postvoid bladder volume is 98 milliliters. AORTA AND IVC: No images are submitted of the vasculature. RETROPERITONEUM: Unremarkable. OTHER: None. IMPRESSION: 1. NO HYDRONEPHROSIS OR NEPHROLITHIASIS. THE LEFT HYDRONEPHROSIS NOTED ON THE PREVIOUS CT EXAMINATION IS NO LONGER EVIDENT. 2. BILATERAL URETERAL JETS ARE NOTED. 3. 98 ML POST VOID RESIDUAL. 4. AGAIN NOTED IS A LEFT RENAL ANGIOMYOLIPOMA
--- NOTE | 2018-03-21 17:39 | PN ---
Subjective Date of Service: 03/21/18 Interval History: HOSPITALIST PROGRESS NOTE Patient seen and examined at bedside. Care reviewed and d/w Coco Mendes RN. She feels better today, denies abdominal pain, N/V. Feels hungry. Family History: Unchanged from Admission Social History: Unchanged from Admission Past Medical History: Unchanged from Admission Objective Active Medications: Acetaminophen (Tylenol Tab*) 650 mg PO Q6H PRN PRN Reason: pain/fever Albuterol (Ventolin Hfa Inhaler*) 2 puff INH Q6H [facility] Last Admin: 03/21/18 15:25 Dose: Not Given Amlodipine Besylate (Norvasc Tab*) 10 mg PO DAILY [facility] Last Admin: 03/21/18 09:40 Dose: 10 mg Docusate Sodium (Colace Cap*) 100 mg PO DAILY [facility] Last Admin: 03/21/18 09:41 Dose: Not Given Gabapentin (Neurontin Cap(*)) 100 mg PO BEDTIME [facility] Last Admin: 03/20/18 21:16 Dose: Not Given Heparin Sodium (Porcine) (Heparin Vial(*)) 5,000 units SUBCUT Q8HR [facility] Last Admin: 03/21/18 15:11 Dose: 5,000 units Sodium Chloride (Ns 0.9% 1000 Ml*) 1,000 mls @ 100 mls/hr IV PER RATE [facility] Last Admin: 03/21/18 09:41 Dose: 100 mls/hr Levothyroxine Sodium (Synthroid Tab*) 88 mcg PO DAILY@0600 [facility] Last Admin: 03/21/18 05:50 Dose: Not Given Mometasone Furoate (Asmanex 220 Mcg Mdi *) 2 puff INH QPM [facility] Last Admin: 03/20/18 19:49 Dose: 2 puff Oxycodone/Acetaminophen (Percocet 5/325 Tab*) 1 tab PO Q4H PRN PRN Reason: Pain Polyethylene Glycol/Electrolytes (Miralax*) 17 gm PO DAILY PRN PRN Reason: CONSTIPATION Prochlorperazine Edisylate (Compazine Inj*) 5 mg IV Q6H PRN PRN Reason: NAUSEA/VOMITING Valsartan (Diovan Tab*) 320 mg PO DAILY [facility] Last Admin: 03/21/18 09:40 Dose: 320 mg Vital Signs - 8 hr 03/21/18 03/21/18 11:26 15:09 Temperature 98.9 F 98.3 F Pulse Rate 70 83 Respiratory 16 18 Rate Blood Pressure 133/65 110/54 (mmHg) O2 Sat by Pulse 97 96 Oximetry Oxygen Devices in Use Now: None Appearance: Pleasant elderly lady lying in bed in NAD. Eyes: No Scleral Icterus Ears/Nose/Mouth/Throat: Mucous Membranes Moist Neck: Trachea Midline Respiratory: Symmetrical Chest Expansion and Respiratory Effort, Clear to Auscultation Cardiovascular: RRR - Normal S1 and S2 Abdominal: NL Sounds; No Tenderness; No Distention Neurological: Alert and Oriented x 3, NL Muscle Strength and Tone Result Diagrams: 03/20/18 09:19 03/20/18 09:19 Assess/Plan/Problems-Billing Assessment: Mrs Whitaker is an 82yo F with PMH of HTN, hypothyroidism, COPD, L2 compression fracture / lumbar spine stenosis, cistocele, who presented to ED with c/o abdominal discomfort, N/V, found to have probable biliary colic. - Patient Problems (1) Biliary colic Comment: - Patient's symptoms started after eating cheeseburger and fries. - CT showed cholelithiasis. - Surgery consult appreciated - plan for RUQ US in AM - if isolated cholelithiasis will f/u as outpatient, but if wall thickening or pericholecystic fluid, will pursue cholecystectomy. (2) Hydronephrosis Comment: - May have been secondary to cystocele or small stone patient passed - resolved. (3) Asthma Comment: - Stable, continue bronchodilators PRN. (4) HTN (hypertension) Comment: - Continue Valsartan and amlodipine. (5) Hypothyroid Comment: - Continue levothyroxine. (6) DVT prophylaxis Comment: - SQ Heparin. (7) Full code status Status and Disposition: Patient and son updated at bedside.
[2018-03-21] MEDS ORDERED: Albuterol HFA INHALER* 8 gm MDI INH PRN (17:56)
--- NOTE | 2018-03-21 18:32 | CONS ---
CC: Dr. Bailee Ayers; [facility] * SURGICAL CONSULTATION REPORT: DATE OF CONSULT: HISTORY OF PRESENT ILLNESS: I was contacted by the hospitalist service to evaluate Ms. Whitaker, an 82-year-old female, who was admitted yesterday with complaints of epigastric pain and nausea with inability to vomit. The patient had been in otherwise good health until just about a month ago when she complained of severe back pain secondary to L2 compression fracture. She underwent physical therapy, was transferred to a short-term rehab and then ultimately back home about 2 weeks ago. The patient had been taking intermittent narcotics for pain control. She does describe that her bowel movements have been altered with some constipation. She has been taking laxatives as needed. The patient presented because of acute onset of inability to vomit despite being very nauseous after eating a fatty meal. She described pain in the epigastrium that has since resolved. She denies any previous similar symptoms and she does provide a longstanding history of mostly inability to vomit. PAST MEDICAL HISTORY: Hypertension, hypothyroidism, COPD, compression fracture as described, and vaginal prolapse. PAST SURGICAL HISTORY: No abdominal surgeries. MEDICATIONS: Medication list reviewed. ALLERGIES: Allergic to AMOXICILLIN. SOCIAL HISTORY: She is retired. She lives alone, although her family has been checking up on her regularly since she was transferred from the short-term rehab. Denies any smoking or IV drug use. REVIEW OF SYSTEMS: No headaches. No shortness of breath. No chest pain. She does describe being quite fatigued lately. She has more difficult time walking. She denies any cerebrovascular disease. No cardiovascular disease other than hypertension. Abdominal complaints as described. Constipation as described. No dysuria, but was diagnosed with urinary tract infection, which according to the patient was not the case. No bleeding or clotting disorders. No endocrine disorders. PHYSICAL EXAM: The patient is afebrile. Vital signs are stable. Urine output has been good. She is alert and oriented x3, in no apparent distress. Head, Ears, Eyes, Nose, and Throat: Normocephalic, atraumatic. Sclerae anicteric. Mucous membranes are moist. Neck: No lymphadenopathy. Abdomen is soft, nondistended, nontender. No surgical scars are noted. No hernias. Rectal exam is not performed. She has no CVA tenderness. Extremities are within normal limits. DIAGNOSTIC STUDIES/LAB DATA: The patient underwent labs since arrival and this was done yesterday and showed a white count of 4.7 with a metabolic panel that is normal with mildly elevated creatinine, which is her baseline. Mildly elevated CRP of 14.1 and an alk phos of 198. T bili of 0.6. She underwent a CT scan of the abdomen and pelvis. These images as well as report reviewed and that was consistent with sigmoid colon mild thickening consistent with possible colitis. She had a hydronephrosis on the left, does have a right lower lobe pulmonary nodule slightly more prominent that measured 3.5 mm. She had cholelithiasis, which apparently is unchanged from study comparison of August 2016. IMPRESSION AND PLAN: An 82-year-old female recently being treated for L2 compression fractures and nerve pain secondary to that, who has been suffering with constipation, possibly somewhat dehydration and change in her regular activities. She does have a diagnosis of cholelithiasis radiographically. This was performed on a CT scan. We do not see any other findings suggestive of biliary disease from that CT scan. My differential diagnosis does include biliary colic, although this is less likely given her presentation of pain and longstanding gallstones, but I would like to have her undergo an ultrasound of the gallbladder possibly tomorrow after she is n.p.o. for some time. Currently , she is eating when I walked into the room. The differential diagnosis does include colitis as well as constipation as well as peptic ulcer disease. Recommendation is for ultrasound tomorrow, repeat of labs if the patient is having more pain, but if she remains comfortable as she is today and the ultrasound is within normal limits, the patient may benefit from just outpatient followup and possible EGD. If that is within normal limits, then we could consider taking her to the OR for laparoscopic cholecystectomy given that she has gallstones with unclear etiology to this nausea and decreased appetite. I discussed this with her son and the patient as well as the hospitalist service. We will continue to follow at this time. [id number]/[facility] #: [id number] YOHANA
[2018-03-21] MEDS: Mometasone 220 MCG MDI INH SCH (20:03)
[2018-03-21] MEDS: Gabapentin CAP(*) 100 MG PO SCH (20:51)
[2018-03-22] MEDS: Heparin VIAL(*) 5000 UNITS/ML VIAL (FIVE THOUSAND) SUBCUT SCH (05:55)
[2018-03-22] MEDS: Levothyroxine TAB* 88 MCG TAB PO SCH (05:55)
--- NOTE | 2018-03-22 09:06 | RAD ---
HISTORY: Cholelithiasis, r/o cholecystitis COMPARISONS: March 20, 2018, renal ultrasound dated March 21, 2018 TECHNIQUE: Multiple transverse and longitudinal ultrasound images were obtained of the right upper quadrant of the abdomen using grayscale and color Doppler imaging. FINDINGS: LIVER: The liver is mildly, diffusely echogenic and coarse in echotexture, with decreased acoustic transmission. The liver is otherwise normal in shape, size, and contour. There is normal hepatopedal flow of the portal vein on Doppler imaging. BILIARY TREE: There is no intrahepatic or extrahepatic biliary dilatation. The common duct measures 0.6 cm. GALLBLADDER: The gallbladder is distended. Multiple shadowing echogenic foci consistent with gallstones are noted. There is no gallbladder wall thickening, pericholecystic fluid, or sonographic Ramos sign. PANCREAS: The head of the pancreas is unremarkable. The tail of the pancreas is not well visualized secondary to overlying bowel gas. RIGHT KIDNEY: There is a simple cyst of the upper pole of the right kidney. There is no hydronephrosis or nephrolithiasis. The right kidney measures 9.9 x 4.3 x 4.2 cm. AORTA AND IVC: The aorta and IVC are unremarkable. FLUID: There are no pleural effusions. There is no free fluid within the hepatorenal recess. OTHER FINDINGS: None. IMPRESSION: 1. CHOLELITHIASIS. 2. MILDLY ECHOGENIC LIVER SUGGESTIVE OF FATTY INFILTRATION.
[2018-03-22] MEDS: Valsartan TAB* 160 MG PO SCH (09:08)
[2018-03-22] MEDS: amLODIPine TAB* 5 MG PO SCH (09:08)
[2018-03-22] MEDS: Docusate CAP* 100 MG PO SCH (09:11)
--- NOTE | 2018-03-22 11:41 | PN ---
Progress Note - Progress Note Date of Service: 03/22/18 SOAP: Subjective: patient seen and examined. feels well today. Positive appetite. No nausea. Objective: Temp Pulse Resp BP Pulse Ox 98.1 F 70 18 122/59 98 03/22/18 07:32 03/22/18 07:32 03/22/18 07:32 03/22/18 07:32 03/22/18 08:00 Alert and oriented 3, in no apparent distress abdomen: Soft, nondistended, nontender. Ultrasound reviewed. Some gallstones. No gallbladder wall thickening Assessment: resolved abdominal pain of unclear etiology. Differential diagnosis includes biliary colic. However, I feel patient would benefit from follow-up as an outpatient and possibly endoscopy. I discussed this with her and she agrees Plan: discharge as per hospitalist. This case was discussed with the hospitalist service.
[2018-03-22 12:00] VITALS: BP 120/64
--- NOTE | 2018-03-23 03:34 | DS ---
CC: Dr. Ayers; Valeria Jiménez DO, [facility] * DISCHARGE SUMMARY: DATE OF ADMISSION: 03/20/18 DATE OF DISCHARGE: 03/22/18 PRIMARY CARE PROVIDER: Dr. Ayers. CONSULTING UROLOGIST: Dr. Castellon. CONSULTING GENERAL SURGEON: Dr. Mendoza. DISCHARGE DIAGNOSES: 1. Abdominal pain, nausea, and vomiting likely secondary to biliary colic. 2. Left hydronephrosis. 3. Cystocele. SECONDARY DIAGNOSES: 1. Hypertension. 2. Hypothyroidism. 3. Chronic obstructive pulmonary disease. 4. L2 compression fracture and lumbar spine stenosis. MEDICATION LIST: As follows: 1. Flovent 110 mcg 2 puffs inhaled b.i.d. 2. Colace 100 mg p.o. daily. 3. Valsartan 320 mg p.o. daily. 4. Gabapentin 100 mg p.o. at bedtime. 5. Albuterol HFA 1 to 2 puffs inhaled q.6 hours p.r.n. shortness of breath. 6. Amlodipine 10 mg p.o. daily. 7. Levothyroxine 88 mcg p.o. daily. 8. Oxycodone/acetaminophen 5/325 mg p.o. q.4 hours p.r.n. pain, MDD 6 tablets. New medications: 1. MiraLAX 17 g p.o. daily. 2. Ondansetron ODT 4 mg sublingual q.6 hours p.r.n. nausea or vomiting. HOSPITAL COURSE: Mrs. Whitaker is an 82-year-old lady with a past medical history as stated above that presented to the emergency room with complaints of nausea and vomiting. The patient states that her symptoms started after having cheeseburger and fries and she was initially seen in the emergency room the day after and was diagnosed with constipation and an UTI, but her symptoms did not improve. For more details about her presentation, I refer you to her history and physical. The patient had a CT of the abdomen and pelvis without contrast that showed thickening of the wall of the sigmoid colon suggestive of mild colitis, new moderate grade left hydronephrosis, possibly secondary to compression of the ureter from a large cystocele, although other etiologies cannot be excluded. 5 mm right lower lobe pulmonary nodule, slightly more prominent on the study from August 2016. Recommend an outpatient CT of the chest without contrast for further evaluation. Cholelithiasis, left renal angiomyolipoma, and chronic compression fracture of the L3 vertebral body. The impression was that the patient's symptoms were likely associated with cholelithiasis, but since the hydronephrosis was a new finding, she was seen in consultation by Urology (Dr. Castellon). His recommendation was to check a postvoid residual that was minimal at 11 cc and he recommended a followup ultrasound to assess this hydronephrosis. This was performed on 03/21/18 and the left hydronephrosis had resolved and bilateral ureteral jets were noted. So , no surgical procedure was pursued. The patient was seen in consultation by General Surgery (Dr. Mendoza) regarding her cholelithiasis and his differential diagnoses included biliary colic, constipation, or peptic ulcer disease. A right upper quadrant ultrasound was performed and it showed cholelithiasis, but there was no gallbladder thickening , no pericholecystic fluid or sonographic Ramos sign. Dr. Mendoza's plan is to follow her as outpatient and even consider GI evaluation for possible endoscopy as the patient was taking NSAID for her back pain. The patient is medically stable for discharge at this time and she will continue followup as outpatient. She also needs followup with Gynecology for pessary ring for her cystocele. DIET: Low fat diet. ACTIVITIES: As tolerated. DISPOSITION: To home. STATUS IN THE HOSPITAL: Observation. Please keep in mind that this is a summarized version of this patient's hospital stay. If you need more information, please feel free to call me at or please obtain the full medical records. TIME SPENT: Approximately 45 minutes were spent to complete this discharge. [id number]/[facility] #: [id number] YOHANA
== END 2018-03-22 12:00 | disposition home or self-care (01) ==
LOC: ED 08:40 → MED 15:16
PROVIDERS: ADMIT Internal Medicine; ATTEND Internal Medicine
DX: R10.9 Unspecified abdominal pain (principal); R11.2 Nausea with vomiting, unspecified; N13.30 Unspecified hydronephrosis; N81.10 Cystocele, unspecified; I10 Essential (primary) hypertension; E03.9 Hypothyroidism, unspecified; J44.9 Chronic obstructive pulmonary disease, unspecified; M48.56XA Collapsed vertebra, not elsewhere classified, lumbar region, initial encounter for fracture; R19.7 Diarrhea, unspecified; Z88.0 Allergy status to penicillin; Z86.79 Personal history of other diseases of the circulatory system
CPT/HCPCS: 36415; 74177; 76705; 76770; 80053; 81003; 81015; 83605; 84484; 85025; 85610; 85730; 86140; 87040; 87086; 93005; 94640; 96374; 99284; A9270-GY; G0378; J1644; Q9967

== ENCOUNTER 2022-12-18 07:47 | Inpatient (IN) ==
[2022-12-18] MEDS ORDERED: Albuterol HFA INHALER 8 gm MDI INH PRN (16:00)
[2022-12-18] MEDS ORDERED: Mometasone 220 MCG MDI INH PRN (17:05)
[2022-12-18] MEDS: Enoxaparin 40 MG/0.4 ML SYR SUBCUT SCH (22:05)
[2022-12-19 06:42] LABS: ABS Eosinophils 0.3 10^3/uL (0.0-0.5); ABS Lymphocytes 1.2 10^3/uL (1.0-4.8); ABS Monocytes 0.7 10^3/uL (0.0-0.9); ABS Neutrophils 3.5 10^3/uL (1.5-7.6); Eosinophil % 4.9 %; Hematocrit 34.7 % (35-45); Hemoglobin 11.6 g/dL (11.5-14.3); Lymphocyte % 20.4 %; Mean Corpuscular Hemoglobin 29.5 pg (27-33); Mean Corpuscular Hgb Conc 33.3 g/dL (31-36); Mean Corpuscular Volume 88.7 fL (80-97); Mean Platelet Volume 6.9 fL (7.5-11.2); Platelet Count 501 10^3/uL (150-450); Red Blood Count 3.92 10^6/uL (3.63-4.92); Red Cell Distribution Width 13.4 % (12-17); White Blood Count 5.7 10^3/uL (3.8-11.8)
[2022-12-19 07:35] LABS: Calcium 9.2 mg/dL (8.6-10.3); Creatinine, Serum 0.91 mg/dL (0.51-0.95); Potassium 5.4 mmol/L (3.5-5.0); Total Protein 6.4 g/dL (6.4-8.9); eGFR CKD-EPI 61.1 (>60)
[2022-12-19 07:36] LABS: Albumin 3.3 g/dL (3.2-5.2); Albumin/Globulin Ratio 1.1 (1-3); Globulin 3.1 g/dL (2-4); Total Bilirubin 0.9 mg/dL (0.2-1.0)
[2022-12-19] MEDS: Enoxaparin 40 MG/0.4 ML SYR SUBCUT SCH (20:22)
[2022-12-20] MEDS: Ondansetron ODT 4 mg TAB 4 MG TAB PO PRN (09:37)
[2022-12-20] MEDS: SPIRIVA Respimat (tiotropium) 2.5 mcg/inh Inhaler INH SCH (09:39)
[2022-12-20] MEDS: Enoxaparin 40 MG/0.4 ML SYR SUBCUT SCH (21:04)
[2022-12-21] MEDS: SPIRIVA Respimat (tiotropium) 2.5 mcg/inh Inhaler INH SCH (07:24)
[2022-12-21] MEDS: Enoxaparin 40 MG/0.4 ML SYR SUBCUT SCH (20:48)
[2022-12-22 07:34] LABS: Calcium 9.1 mg/dL (8.6-10.3); Creatinine, Serum 1.01 mg/dL (0.51-0.95); Potassium 5.1 mmol/L (3.5-5.0); eGFR CKD-EPI 53.9 (>60)
[2022-12-22] MEDS: SPIRIVA Respimat (tiotropium) 2.5 mcg/inh Inhaler INH SCH (08:21)
[2022-12-22] MEDS: Ondansetron ODT 4 mg TAB 4 MG TAB PO PRN (08:50)
[2022-12-22] MEDS: Magnesium Hydroxide LIQ 30 ML UDC PO PRN (19:45)
[2022-12-22] MEDS: Enoxaparin 40 MG/0.4 ML SYR SUBCUT SCH (20:52)
[2022-12-22] MEDS: Senna TAB 8.6 mg TAB PO PRN (20:52)
[2022-12-23] MEDS: SPIRIVA Respimat (tiotropium) 2.5 mcg/inh Inhaler INH SCH (09:15)
[2022-12-23] MEDS: Magnesium Hydroxide LIQ 30 ML UDC PO PRN (10:52)
[2022-12-23] MEDS: oxyCODONE/Acetamin 5/325 mg TAB PO PRN ×2 (13:30→21:31)
[2022-12-23] MEDS: Ondansetron ODT 4 mg TAB 4 MG TAB PO PRN (13:34)
[2022-12-23] MEDS: NS 0.9% 1000 ml BAG 1,000 ML IV SCH (15:03)
[2022-12-23] MEDS: Enoxaparin 40 MG/0.4 ML SYR SUBCUT SCH (20:40)
[2022-12-23] MEDS: Senna TAB 8.6 mg TAB PO PRN (20:40)
[2022-12-24] MEDS: NS 0.9% 1000 ml BAG 1,000 ML IV SCH (05:04)
[2022-12-24] MEDS: SPIRIVA Respimat (tiotropium) 2.5 mcg/inh Inhaler INH SCH (08:12)
[2022-12-24 08:43] LABS: Albumin 3.4 g/dL (3.2-5.2); Albumin/Globulin Ratio 1.1 (1-3); Creatinine, Serum 0.87 mg/dL (0.51-0.95); Globulin 3.1 g/dL (2-4); Potassium 4.9 mmol/L (3.5-5.0); Total Bilirubin 0.7 mg/dL (0.2-1.0); Total Protein 6.5 g/dL (6.4-8.9); eGFR CKD-EPI 64.4 (>60)
[2022-12-24] MEDS ORDERED: Polyethylene Glycol 3350 17 GM PACKET PO PRN (10:31)
[2022-12-24 12:54] LABS: Urine Appearance Cloudy; Urine Bilirubin Negative (Negative); Urine Blood Negative (Negative); Urine Color Yellow; Urine Glucose Negative (Negative); Urine Ketones 1+ (Negative); Urine Nitrite Negative (Negative); Urine Protein Negative (Negative); Urine Urobilinogen Negative (Negative)
[2022-12-24 13:20] LABS: Urine Bacteria Absent (Absent); Urine Red Blood Cell Trace(0-2/hpf) (Absent); Urine Squamous Epithelial Cell Present (Absent); Urine White Blood Cell Trace(0-5/hpf) (Absent)
[2022-12-24] MEDS: HYDROcodone/ACETAMIN 5/325 mg TAB PO PRN ×3 (13:52→23:19)
[2022-12-24] MEDS: Enoxaparin 40 MG/0.4 ML SYR SUBCUT SCH (20:53)
[2022-12-25] MEDS: HYDROcodone/ACETAMIN 5/325 mg TAB PO PRN ×3 (04:02→18:09)
[2022-12-25] MEDS: SPIRIVA Respimat (tiotropium) 2.5 mcg/inh Inhaler INH SCH (08:59)
[2022-12-25] MEDS: Enoxaparin 40 MG/0.4 ML SYR SUBCUT SCH (21:01)
[2022-12-26] MEDS: HYDROcodone/ACETAMIN 5/325 mg TAB PO PRN ×3 (06:39→21:11)
[2022-12-26] MEDS: SPIRIVA Respimat (tiotropium) 2.5 mcg/inh Inhaler INH SCH (07:47)
[2022-12-26 08:11] LABS: ABS Basophils 0.1 10^3/uL (0.0-0.1); ABS Eosinophils 0.3 10^3/uL (0.0-0.5); ABS Lymphocytes 1.2 10^3/uL (1.0-4.8); ABS Monocytes 0.6 10^3/uL (0.0-0.9); ABS Neutrophils 4.5 10^3/uL (1.5-7.6); ABS Nucleated RBC 0.01 10^3/ul; Eosinophil % 4.4 %; Hematocrit 33.6 % (35-45); Hemoglobin 11.2 g/dL (11.5-14.3); Lymphocyte % 17.5 %; Mean Corpuscular Hgb Conc 33.4 g/dL (31-36); Mean Corpuscular Volume 86.6 fL (80-97); Mean Platelet Volume 7.2 fL (7.5-11.2); Nucleated Red Blood Cells % 0.1 /100 WBC (0.0-0.4); Platelet Count 574 10^3/uL (150-450); Red Blood Count 3.87 10^6/uL (3.63-4.92); Red Cell Distribution Width 13.3 % (12-17); White Blood Count 6.6 10^3/uL (3.8-11.8)
[2022-12-26 08:45] LABS: Albumin 3.1 g/dL (3.2-5.2); Albumin/Globulin Ratio 1.1 (1-3); Calcium 8.8 mg/dL (8.6-10.3); Creatinine, Serum 0.66 mg/dL (0.51-0.95); Globulin 2.7 g/dL (2-4); Potassium 4.8 mmol/L (3.5-5.0); Total Bilirubin 0.6 mg/dL (0.2-1.0); Total Protein 5.8 g/dL (6.4-8.9); eGFR CKD-EPI 84.8 (>60)
[2022-12-26] MEDS: Ondansetron ODT 4 mg TAB 4 MG TAB PO PRN (21:11)
[2022-12-26] MEDS: Enoxaparin 40 MG/0.4 ML SYR SUBCUT SCH (21:12)
[2022-12-27] MEDS: HYDROcodone/ACETAMIN 5/325 mg TAB PO PRN ×4 (01:35→23:07)
[2022-12-27] MEDS: SPIRIVA Respimat (tiotropium) 2.5 mcg/inh Inhaler INH SCH (09:13)
[2022-12-27] MEDS: Ondansetron ODT 4 mg TAB 4 MG TAB PO PRN ×2 (14:55→23:12)
[2022-12-27] MEDS: Enoxaparin 40 MG/0.4 ML SYR SUBCUT SCH (20:46)
[2022-12-28] MEDS: HYDROcodone/ACETAMIN 5/325 mg TAB PO PRN ×5 (02:46→22:04)
[2022-12-28] MEDS: Ondansetron ODT 4 mg TAB 4 MG TAB PO PRN ×2 (06:57→13:21)
[2022-12-28] MEDS: SPIRIVA Respimat (tiotropium) 2.5 mcg/inh Inhaler INH SCH (10:19)
[2022-12-28] MEDS: Enoxaparin 40 MG/0.4 ML SYR SUBCUT SCH (20:46)
[2022-12-29] MEDS: HYDROcodone/ACETAMIN 5/325 mg TAB PO PRN (05:55)
[2022-12-29] MEDS: Ondansetron ODT 4 mg TAB 4 MG TAB PO PRN ×2 (09:25→16:55)
[2022-12-29] MEDS: SPIRIVA Respimat (tiotropium) 2.5 mcg/inh Inhaler INH SCH (10:19)
[2022-12-29] MEDS ORDERED: HYDROcodone/ACETAMIN 5/325 mg TAB PO PRN (19:52)
[2022-12-29] MEDS: Senna TAB 8.6 mg TAB PO PRN (21:03)
[2022-12-29] MEDS: Enoxaparin 40 MG/0.4 ML SYR SUBCUT SCH (21:03)
[2022-12-30] MEDS: SPIRIVA Respimat (tiotropium) 2.5 mcg/inh Inhaler INH SCH (12:53)
[2022-12-30] MEDS: Senna TAB 8.6 mg TAB PO PRN (20:44)
[2022-12-30] MEDS: Enoxaparin 40 MG/0.4 ML SYR SUBCUT SCH (20:45)
[2022-12-31] MEDS: SPIRIVA Respimat (tiotropium) 2.5 mcg/inh Inhaler INH SCH (07:50)
[2022-12-31] MEDS: Enoxaparin 40 MG/0.4 ML SYR SUBCUT SCH (20:49)
[2023-01-01] MEDS: SPIRIVA Respimat (tiotropium) 2.5 mcg/inh Inhaler INH SCH (08:19)
[2023-01-01] MEDS: Enoxaparin 40 MG/0.4 ML SYR SUBCUT SCH (21:20)
[2023-01-02 06:40] LABS: ABS Basophils 0.1 10^3/uL (0.0-0.1); ABS Eosinophils 0.4 10^3/uL (0.0-0.5); ABS Lymphocytes 1.6 10^3/uL (1.0-4.8); ABS Monocytes 0.6 10^3/uL (0.0-0.9); ABS Neutrophils 2.7 10^3/uL (1.5-7.6); Hematocrit 34.7 % (35-45); Hemoglobin 11.7 g/dL (11.5-14.3); Lymphocyte % 29.9 %; Mean Corpuscular Hemoglobin 29.9 pg (27-33); Mean Corpuscular Hgb Conc 33.8 g/dL (31-36); Mean Corpuscular Volume 88.6 fL (80-97); Mean Platelet Volume 7.4 fL (7.5-11.2); Platelet Count 608 10^3/uL (150-450); Red Blood Count 3.92 10^6/uL (3.63-4.92); Red Cell Distribution Width 13.5 % (12-17); White Blood Count 5.4 10^3/uL (3.8-11.8)
[2023-01-02 06:50] LABS: Albumin 3.1 g/dL (3.2-5.2); Albumin/Globulin Ratio 1.2 (1-3); Calcium 9.1 mg/dL (8.6-10.3); Creatinine, Serum 0.72 mg/dL (0.51-0.95); Globulin 2.6 g/dL (2-4); Potassium 4.2 mmol/L (3.5-5.0); Total Bilirubin 0.6 mg/dL (0.2-1.0); Total Protein 5.7 g/dL (6.4-8.9); eGFR CKD-EPI 80.9 (>60)
[2023-01-02] MEDS: SPIRIVA Respimat (tiotropium) 2.5 mcg/inh Inhaler INH SCH (07:15)
[2023-01-02] MEDS: Enoxaparin 40 MG/0.4 ML SYR SUBCUT SCH (19:48)
[2023-01-03] MEDS: SPIRIVA Respimat (tiotropium) 2.5 mcg/inh Inhaler INH SCH (09:21)
[2023-01-03] MEDS: Enoxaparin 40 MG/0.4 ML SYR SUBCUT SCH (20:18)
[2023-01-04] MEDS: SPIRIVA Respimat (tiotropium) 2.5 mcg/inh Inhaler INH SCH (08:36)
[2023-01-04] MEDS: Enoxaparin 40 MG/0.4 ML SYR SUBCUT SCH (20:20)
[2023-01-05] MEDS: SPIRIVA Respimat (tiotropium) 2.5 mcg/inh Inhaler INH SCH (07:33)
[2023-01-05] MEDS: Senna TAB 8.6 mg TAB PO PRN (20:23)
[2023-01-05] MEDS: Enoxaparin 40 MG/0.4 ML SYR SUBCUT SCH (20:23)
[2023-01-06] MEDS: SPIRIVA Respimat (tiotropium) 2.5 mcg/inh Inhaler INH SCH (07:34)
[2023-01-06] MEDS: HYDROcodone/ACETAMIN 5/325 mg TAB PO PRN ×2 (10:50→19:32)
[2023-01-06] MEDS: Enoxaparin 40 MG/0.4 ML SYR SUBCUT SCH (20:11)
[2023-01-07] MEDS: HYDROcodone/ACETAMIN 5/325 mg TAB PO PRN (08:19)
[2023-01-07] MEDS: SPIRIVA Respimat (tiotropium) 2.5 mcg/inh Inhaler INH SCH (10:25)
[2023-01-07] MEDS: Enoxaparin 40 MG/0.4 ML SYR SUBCUT SCH (20:43)
[2023-01-08] MEDS: SPIRIVA Respimat (tiotropium) 2.5 mcg/inh Inhaler INH SCH (07:47)
[2023-01-08] MEDS: Enoxaparin 40 MG/0.4 ML SYR SUBCUT SCH (20:12)
[2023-01-09 06:43] LABS: ABS Eosinophils 0.4 10^3/uL (0.0-0.5); ABS Lymphocytes 1.2 10^3/uL (1.0-4.8); ABS Monocytes 0.6 10^3/uL (0.0-0.9); ABS Neutrophils 2.9 10^3/uL (1.5-7.6); ABS Nucleated RBC 0.01 10^3/ul; Eosinophil % 8.6 %; Hematocrit 33.8 % (35-45); Hemoglobin 11.2 g/dL (11.5-14.3); Lymphocyte % 22.8 %; Mean Corpuscular Hemoglobin 29.5 pg (27-33); Mean Corpuscular Hgb Conc 33.1 g/dL (31-36); Mean Corpuscular Volume 89.1 fL (80-97); Mean Platelet Volume 7.5 fL (7.5-11.2); Nucleated Red Blood Cells % 0.3 /100 WBC (0.0-0.4); Platelet Count 496 10^3/uL (150-450); Red Blood Count 3.79 10^6/uL (3.63-4.92); Red Cell Distribution Width 14.3 % (12-17); White Blood Count 5.1 10^3/uL (3.8-11.8)
[2023-01-09 07:06] LABS: Albumin 3.1 g/dL (3.2-5.2); Albumin/Globulin Ratio 1.1 (1-3); Calcium 8.8 mg/dL (8.6-10.3); Creatinine, Serum 0.69 mg/dL (0.51-0.95); Globulin 2.8 g/dL (2-4); Potassium 4.4 mmol/L (3.5-5.0); Total Bilirubin 0.5 mg/dL (0.2-1.0); Total Protein 5.9 g/dL (6.4-8.9); eGFR CKD-EPI 83.9 (>60)
[2023-01-09] MEDS: HYDROcodone/ACETAMIN 5/325 mg TAB PO PRN (08:03)
[2023-01-09] MEDS: SPIRIVA Respimat (tiotropium) 2.5 mcg/inh Inhaler INH SCH (08:50)
[2023-01-09] MEDS: Enoxaparin 40 MG/0.4 ML SYR SUBCUT SCH (20:07)
[2023-01-09] MEDS: Senna TAB 8.6 mg TAB PO PRN (20:07)
[2023-01-10] MEDS: SPIRIVA Respimat (tiotropium) 2.5 mcg/inh Inhaler INH SCH (11:07)
[2023-01-10] MEDS: HYDROcodone/ACETAMIN 5/325 mg TAB PO PRN (12:13)
[2023-01-10] MEDS: Magnesium Hydroxide LIQ 30 ML UDC PO PRN (20:52)
[2023-01-10] MEDS: Enoxaparin 40 MG/0.4 ML SYR SUBCUT SCH (20:52)
[2023-01-11] MEDS: SPIRIVA Respimat (tiotropium) 2.5 mcg/inh Inhaler INH SCH (08:27)
[2023-01-11] MEDS: HYDROcodone/ACETAMIN 5/325 mg TAB PO PRN (08:30)
[2023-01-11] MEDS: Enoxaparin 40 MG/0.4 ML SYR SUBCUT SCH (20:12)
[2023-01-12] MEDS: HYDROcodone/ACETAMIN 5/325 mg TAB PO PRN (08:41)
[2023-01-12] MEDS: SPIRIVA Respimat (tiotropium) 2.5 mcg/inh Inhaler INH SCH (08:41)
[2023-01-12] MEDS: Enoxaparin 40 MG/0.4 ML SYR SUBCUT SCH (20:58)
[2023-01-13] MEDS: Ondansetron ODT 4 mg TAB 4 MG TAB PO PRN (04:03)
[2023-01-13] MEDS: SPIRIVA Respimat (tiotropium) 2.5 mcg/inh Inhaler INH SCH (07:27)
[2023-01-13] MEDS: Enoxaparin 40 MG/0.4 ML SYR SUBCUT SCH (20:17)
[2023-01-14] MEDS: SPIRIVA Respimat (tiotropium) 2.5 mcg/inh Inhaler INH SCH (09:05)
[2023-01-14] MEDS: Enoxaparin 40 MG/0.4 ML SYR SUBCUT SCH (20:35)
[2023-01-15] MEDS: Ondansetron ODT 4 mg TAB 4 MG TAB PO PRN (04:16)
[2023-01-15] MEDS: SPIRIVA Respimat (tiotropium) 2.5 mcg/inh Inhaler INH SCH (09:20)
[2023-01-15] MEDS: Enoxaparin 40 MG/0.4 ML SYR SUBCUT SCH (21:29)
[2023-01-16 06:47] LABS: ABS Eosinophils 0.3 10^3/uL (0.0-0.5); ABS Lymphocytes 1.1 10^3/uL (1.0-4.8); ABS Monocytes 0.6 10^3/uL (0.0-0.9); ABS Neutrophils 1.8 10^3/uL (1.5-7.6); Hematocrit 36.3 % (35-45); Hemoglobin 12.3 g/dL (11.5-14.3); Lymphocyte % 27.6 %; Mean Corpuscular Hemoglobin 30.3 pg (27-33); Mean Corpuscular Hgb Conc 33.8 g/dL (31-36); Mean Corpuscular Volume 89.8 fL (80-97); Mean Platelet Volume 7.1 fL (7.5-11.2); Nucleated Red Blood Cells % 0.1 /100 WBC (0.0-0.4); Platelet Count 388 10^3/uL (150-450); Red Blood Count 4.04 10^6/uL (3.63-4.92); Red Cell Distribution Width 14.9 % (12-17); White Blood Count 3.8 10^3/uL (3.8-11.8)
[2023-01-16 07:12] LABS: Albumin 3.4 g/dL (3.2-5.2); Albumin/Globulin Ratio 1.3 (1-3); Calcium 9.4 mg/dL (8.6-10.3); Creatinine, Serum 0.78 mg/dL (0.51-0.95); Globulin 2.7 g/dL (2-4); Potassium 4.3 mmol/L (3.5-5.0); Total Bilirubin 0.6 mg/dL (0.2-1.0); Total Protein 6.1 g/dL (6.4-8.9); eGFR CKD-EPI 73.5 (>60)
[2023-01-16] MEDS: SPIRIVA Respimat (tiotropium) 2.5 mcg/inh Inhaler INH SCH (07:24)
[2023-01-16] MEDS: Enoxaparin 40 MG/0.4 ML SYR SUBCUT SCH (20:08)
[2023-01-17] MEDS: SPIRIVA Respimat (tiotropium) 2.5 mcg/inh Inhaler INH SCH (07:39)
[2023-01-17] MEDS: Senna TAB 8.6 mg TAB PO PRN (20:53)
[2023-01-17] MEDS: Enoxaparin 40 MG/0.4 ML SYR SUBCUT SCH (20:53)
[2023-01-18] MEDS: SPIRIVA Respimat (tiotropium) 2.5 mcg/inh Inhaler INH SCH (07:26)
[2023-01-18] MEDS: Enoxaparin 40 MG/0.4 ML SYR SUBCUT SCH (21:20)
[2023-01-19] MEDS: SPIRIVA Respimat (tiotropium) 2.5 mcg/inh Inhaler INH SCH (07:47)
[2023-01-19] MEDS: Enoxaparin 40 MG/0.4 ML SYR SUBCUT SCH (21:09)
[2023-01-19] MEDS: Senna TAB 8.6 mg TAB PO PRN (21:09)
[2023-01-20] MEDS: SPIRIVA Respimat (tiotropium) 2.5 mcg/inh Inhaler INH SCH (07:21)
[2023-01-20] MEDS: Enoxaparin 40 MG/0.4 ML SYR SUBCUT SCH (20:52)
[2023-01-21] MEDS: SPIRIVA Respimat (tiotropium) 2.5 mcg/inh Inhaler INH SCH (09:01)
[2023-01-21] MEDS: Enoxaparin 40 MG/0.4 ML SYR SUBCUT SCH (20:33)
[2023-01-22] MEDS: SPIRIVA Respimat (tiotropium) 2.5 mcg/inh Inhaler INH SCH (08:28)
[2023-01-22] MEDS: Enoxaparin 40 MG/0.4 ML SYR SUBCUT SCH (20:24)
[2023-01-23] MEDS: SPIRIVA Respimat (tiotropium) 2.5 mcg/inh Inhaler INH SCH (07:25)
[2023-01-23] MEDS: Ondansetron ODT 4 mg TAB 4 MG TAB PO PRN (07:29)
[2023-01-23 07:41] LABS: Albumin 3.5 g/dL (3.2-5.2); Albumin/Globulin Ratio 1.3 (1-3); Creatinine, Serum 0.72 mg/dL (0.51-0.95); Globulin 2.6 g/dL (2-4); Potassium 4.1 mmol/L (3.5-5.0); Total Bilirubin 0.6 mg/dL (0.2-1.0); Total Protein 6.1 g/dL (6.4-8.9); eGFR CKD-EPI 80.9 (>60)
[2023-01-23 09:10] LABS: ABS Basophils 0.1 10^3/uL (0.0-0.1); ABS Eosinophils 0.4 10^3/uL (0.0-0.5); ABS Lymphocytes 1.4 10^3/uL (1.0-4.8); ABS Monocytes 0.4 10^3/uL (0.0-0.9); ABS Neutrophils 1.5 10^3/uL (1.5-7.6); ABS Nucleated RBC 0.02 10^3/ul; Eosinophil % 10.1 %; Hematocrit 36.9 % (35-45); Hemoglobin 12.1 g/dL (11.5-14.3); Lymphocyte % 37.7 %; Mean Corpuscular Hemoglobin 29.6 pg (27-33); Mean Corpuscular Hgb Conc 32.8 g/dL (31-36); Mean Corpuscular Volume 90.3 fL (80-97); Mean Platelet Volume 8.1 fL (7.5-11.2); Nucleated Red Blood Cells % 0.4 /100 WBC (0.0-0.4); Platelet Count 328 10^3/uL (150-450); Red Blood Count 4.09 10^6/uL (3.63-4.92); Red Cell Distribution Width 14.7 % (12-17); White Blood Count 3.8 10^3/uL (3.8-11.8)
[2023-01-23] MEDS: Enoxaparin 40 MG/0.4 ML SYR SUBCUT SCH (21:08)
[2023-01-24] MEDS: SPIRIVA Respimat (tiotropium) 2.5 mcg/inh Inhaler INH SCH (07:34)
[2023-01-24] MEDS: Enoxaparin 40 MG/0.4 ML SYR SUBCUT SCH (21:34)
[2023-01-25] MEDS: SPIRIVA Respimat (tiotropium) 2.5 mcg/inh Inhaler INH SCH (08:21)
[2023-01-25] MEDS: Ondansetron ODT 4 mg TAB 4 MG TAB PO PRN (11:53)
[2023-01-25] MEDS: Enoxaparin 40 MG/0.4 ML SYR SUBCUT SCH (21:15)
[2023-01-26] MEDS: SPIRIVA Respimat (tiotropium) 2.5 mcg/inh Inhaler INH SCH (09:09)
[2023-01-26] MEDS: Enoxaparin 40 MG/0.4 ML SYR SUBCUT SCH (21:30)
[2023-01-27] MEDS: SPIRIVA Respimat (tiotropium) 2.5 mcg/inh Inhaler INH SCH (08:07)
[2023-01-27] MEDS: Enoxaparin 40 MG/0.4 ML SYR SUBCUT SCH (19:11)
[2023-01-27] MEDS: Magnesium Hydroxide LIQ 30 ML UDC PO PRN (19:11)
[2023-01-28] MEDS: SPIRIVA Respimat (tiotropium) 2.5 mcg/inh Inhaler INH SCH (09:27)
[2023-01-28] MEDS: Magnesium Hydroxide LIQ 30 ML UDC PO PRN (17:11)
[2023-01-28] MEDS: Enoxaparin 40 MG/0.4 ML SYR SUBCUT SCH (20:57)
[2023-01-29] MEDS: SPIRIVA Respimat (tiotropium) 2.5 mcg/inh Inhaler INH SCH (09:05)
[2023-01-29] MEDS: Enoxaparin 40 MG/0.4 ML SYR SUBCUT SCH (21:08)
[2023-01-30 06:53] LABS: ABS Basophils 0.1 10^3/uL (0.0-0.1); ABS Eosinophils 0.5 10^3/uL (0.0-0.5); ABS Lymphocytes 1.3 10^3/uL (1.0-4.8); ABS Monocytes 0.5 10^3/uL (0.0-0.9); ABS Neutrophils 2.2 10^3/uL (1.5-7.6); ABS Nucleated RBC 0.01 10^3/ul; Eosinophil % 10.5 %; Hematocrit 36.7 % (35-45); Hemoglobin 12.3 g/dL (11.5-14.3); Lymphocyte % 29.1 %; Mean Corpuscular Hemoglobin 29.9 pg (27-33); Mean Corpuscular Hgb Conc 33.4 g/dL (31-36); Mean Corpuscular Volume 89.5 fL (80-97); Mean Platelet Volume 7.3 fL (7.5-11.2); Nucleated Red Blood Cells % 0.2 /100 WBC (0.0-0.4); Platelet Count 461 10^3/uL (150-450); Red Blood Count 4.11 10^6/uL (3.63-4.92); Red Cell Distribution Width 14.7 % (12-17); White Blood Count 4.5 10^3/uL (3.8-11.8)
[2023-01-30 07:20] LABS: Albumin 3.5 g/dL (3.2-5.2); Albumin/Globulin Ratio 1.1 (1-3); Calcium 9.3 mg/dL (8.6-10.3); Creatinine, Serum 0.73 mg/dL (0.51-0.95); Globulin 3.1 g/dL (2-4); Potassium 4.1 mmol/L (3.5-5.0); Total Bilirubin 0.7 mg/dL (0.2-1.0); Total Protein 6.6 g/dL (6.4-8.9); eGFR CKD-EPI 79.5 (>60)
[2023-01-30] MEDS: Ondansetron ODT 4 mg TAB 4 MG TAB PO PRN (07:48)
[2023-01-30] MEDS: SPIRIVA Respimat (tiotropium) 2.5 mcg/inh Inhaler INH SCH (08:35)
[2023-01-30] MEDS: Enoxaparin 40 MG/0.4 ML SYR SUBCUT SCH (20:44)
[2023-01-31] MEDS: SPIRIVA Respimat (tiotropium) 2.5 mcg/inh Inhaler INH SCH (11:34)
[2023-01-31] MEDS: Magnesium Hydroxide LIQ 30 ML UDC PO PRN (18:24)
[2023-01-31] MEDS: Enoxaparin 40 MG/0.4 ML SYR SUBCUT SCH (21:14)
[2023-02-01] MEDS: SPIRIVA Respimat (tiotropium) 2.5 mcg/inh Inhaler INH SCH (09:44)
[2023-02-01] MEDS: Senna TAB 8.6 mg TAB PO PRN (20:04)
[2023-02-01] MEDS: Magnesium Hydroxide LIQ 30 ML UDC PO PRN (20:04)
[2023-02-01] MEDS: Enoxaparin 40 MG/0.4 ML SYR SUBCUT SCH (20:04)
[2023-02-02] MEDS: SPIRIVA Respimat (tiotropium) 2.5 mcg/inh Inhaler INH SCH (08:44)
[2023-02-02] MEDS: Enoxaparin 40 MG/0.4 ML SYR SUBCUT SCH (20:19)
[2023-02-03] MEDS: SPIRIVA Respimat (tiotropium) 2.5 mcg/inh Inhaler INH SCH (07:40)
[2023-02-03] MEDS: Ondansetron ODT 4 mg TAB 4 MG TAB PO PRN (09:08)
[2023-02-03] MEDS: Enoxaparin 40 MG/0.4 ML SYR SUBCUT SCH (21:29)
[2023-02-04] MEDS: SPIRIVA Respimat (tiotropium) 2.5 mcg/inh Inhaler INH SCH (08:25)
[2023-02-04] MEDS: Enoxaparin 40 MG/0.4 ML SYR SUBCUT SCH (20:47)
[2023-02-05] MEDS: SPIRIVA Respimat (tiotropium) 2.5 mcg/inh Inhaler INH SCH (09:15)
[2023-02-05] MEDS: Ondansetron ODT 4 mg TAB 4 MG TAB PO PRN (11:10)
[2023-02-05] MEDS: Magnesium Hydroxide LIQ 30 ML UDC PO PRN (19:51)
[2023-02-05] MEDS: Enoxaparin 40 MG/0.4 ML SYR SUBCUT SCH (20:16)
[2023-02-06] MEDS: SPIRIVA Respimat (tiotropium) 2.5 mcg/inh Inhaler INH SCH (09:57)
[2023-02-06] MEDS: Enoxaparin 40 MG/0.4 ML SYR SUBCUT SCH (21:07)
[2023-02-07 06:10] VITALS: BP 114/67
[2023-02-07] MEDS: SPIRIVA Respimat (tiotropium) 2.5 mcg/inh Inhaler INH SCH (08:30)
== END 2023-02-07 11:55 | disposition home or self-care (01) | DRG 561 ==
LOC: PMRU 13:19
PROVIDERS: ADMIT Physical Medicine & Rehabilitation; ATTEND Physical Medicine & Rehabilitation